=== PATIENT | male | born 1965 | race Caucasian/White ===

== ENCOUNTER 2017-06-20 02:42 | Inpatient (IN) | payer MEDICAID, SELFPAY ==
[2017-06-20] MEDS: diphenhydrAMINE INJ 50MG/ML VIAL (J1200) IV (03:25)
[2017-06-20] MEDS: IPRATROPIUM 0.5MG/ALBUTEROL 2.5MG INH SOL UD 3ML (DUONEB)(J7620) NEB ×4 (03:42→20:46)
[2017-06-20 03:54] LABS: BASO # 0.1 10^3/uL (0.0-0.2); BASO % 0.4 % (0.0-1.0); EOS # 0.3 10^3/uL (0.0-0.50); EOS % 2.4 % (0.0-3.0); HEMATOCRIT 51.4 % (42.0-52.0); HEMOGLOBIN 16.7 g/dl (14.0-18.0); IMMATURE GRANULOCYTE % 1.5 % (0-3.0); LYMPH # 1.1 10^3/uL (1.5-4.5); LYMPH % 8.5 % (24.0-44.0); MEAN CORPUSCULAR HEMOGLOBIN 29.9 pg (27.0-33.0); MEAN CORPUSCULAR HGB CONC 32.5 g/dl (32.0-36.5); MEAN CORPUSCULAR VOLUME 91.9 fl (80.0-96.0); MONO # 0.7 10^3/uL (0.0-0.8); MONO % 5.2 % (0.0-5.0); NEUTROPHILS # 10.7 10^3/uL (1.8-7.7); PLATELET COUNT, AUTOMATED 428 10^3/uL (150-450); RED BLOOD COUNT 5.59 10^6/uL (4.30-6.10); RED CELL DISTRIBUTION WIDTH 13.2 % (11.5-14.5)
[2017-06-20 03:55] LABS: SUSPECT SAMPLE POS FLAG
[2017-06-20 04:40] LABS: LACTIC ACID SEPSIS PROTOCOL 1.1 MMOL/L (0.4-2.0)
[2017-06-20 04:40] LABS: ALBUMIN 2.6 GM/DL (3.2-5.2); ALBUMIN/GLOBULIN RATIO 0.72 (1.00-1.93); ALKALINE PHOSPHATASE 105 U/L (45-117); ALT/SGPT 25 U/L (12-78); ANION GAP 7 MEQ/L (8-16); AST/SGOT 17 U/L (7-37); BILIRUBIN,DIRECT 0.1 MG/DL (0.0-0.2); BILIRUBIN,TOTAL 0.3 MG/DL (0.2-1.0); BLOOD UREA NITROGEN 5 MG/DL (7-18); CALCIUM LEVEL 8.7 MG/DL (8.5-10.1); CARBON DIOXIDE LEVEL 31 MEQ/L (21-32); CHLORIDE LEVEL 104 MEQ/L (98-107); CREATININE FOR GFR 0.69 MG/DL (0.70-1.30); GLOMERULAR FILTRATION RATE > 60.0 (>56); GLUCOSE, FASTING 150 MG/DL (70-100); NT-PRO BNP 101 PG/ML (<125); POTASSIUM SERUM 4.7 MEQ/L (3.5-5.1); SODIUM LEVEL 142 MEQ/L (136-145); TOTAL PROTEIN 6.2 GM/DL (6.4-8.2)
[2017-06-20] MEDS ORDERED: ACETAMINOPHEN TAB 650MG DOSE (2X325MG) PO (06:30)
[2017-06-20 07:25] LABS: CHOLESTEROL LEVEL 139 MG/DL (<200); CHOLESTEROL RISK RATIO 3.475 (<5); HDL CHOLESTEROL 40 MG/DL (>40); LDL CHOLESTEROL 82.4 MG/DL (<100); NON-HDL-C 99 MG/DL; TRIGLYCERIDES LEVEL 83 MG/DL (<150)
[2017-06-20] MEDS: HEPARIN SOD (PORCINE) 5000 UNITS/ML VIAL SC ×3 (10:36→22:25)
[2017-06-20] MEDS: predniSONE 20 MG TAB PO (10:36)
[2017-06-20] MEDS: DOXYCYCLINE HYCLATE 100 MG TAB PO ×2 (14:23→22:25)
[2017-06-20] MEDS: LORATADINE 10 MG TAB PO (22:25)
[2017-06-20] MEDS: FAMOTIDINE 20 MG TAB PO (22:25)
[2017-06-21] MEDS: IPRATROPIUM 0.5MG/ALBUTEROL 2.5MG INH SOL UD 3ML (DUONEB)(J7620) NEB ×5 (00:36→20:00)
[2017-06-21] MEDS: HEPARIN SOD (PORCINE) 5000 UNITS/ML VIAL SC ×3 (06:01→21:13)
[2017-06-21 06:43] LABS: BASO % 0.2 % (0.0-1.0); EOS # 0.2 10^3/uL (0.0-0.50); EOS % 1.1 % (0.0-3.0); HEMATOCRIT 49.2 % (42.0-52.0); HEMOGLOBIN 15.9 g/dl (14.0-18.0); IMMATURE GRANULOCYTE % 1.1 % (0-3.0); LYMPH # 2.4 10^3/uL (1.5-4.5); LYMPH % 15.4 % (24.0-44.0); MEAN CORPUSCULAR HEMOGLOBIN 29.7 pg (27.0-33.0); MEAN CORPUSCULAR HGB CONC 32.3 g/dl (32.0-36.5); MEAN CORPUSCULAR VOLUME 91.8 fl (80.0-96.0); MONO # 1.4 10^3/uL (0.0-0.8); MONO % 9.1 % (0.0-5.0); NEUTROPHILS # 11.3 10^3/uL (1.8-7.7); NEUTROPHILS % 73.1 % (36.0-66.0); PLATELET COUNT, AUTOMATED 437 10^3/uL (150-450); RED BLOOD COUNT 5.36 10^6/uL (4.30-6.10); RED CELL DISTRIBUTION WIDTH 13.2 % (11.5-14.5); WHITE BLOOD COUNT 15.4 10^3/uL (4.0-10.0)
[2017-06-21 07:07] LABS: ALBUMIN 2.4 GM/DL (3.2-5.2); ALBUMIN/GLOBULIN RATIO 0.62 (1.00-1.93); ALKALINE PHOSPHATASE 88 U/L (45-117); ALT/SGPT 23 U/L (12-78); ANION GAP 3 MEQ/L (8-16); AST/SGOT 12 U/L (7-37); BILIRUBIN,TOTAL 0.2 MG/DL (0.2-1.0); BLOOD UREA NITROGEN 10 MG/DL (7-18); CALCIUM LEVEL 9.1 MG/DL (8.5-10.1); CARBON DIOXIDE LEVEL 34 MEQ/L (21-32); CHLORIDE LEVEL 103 MEQ/L (98-107); CREATININE FOR GFR 0.62 MG/DL (0.70-1.30); GLOMERULAR FILTRATION RATE > 60.0 (>56); GLUCOSE, FASTING 118 MG/DL (70-100); POTASSIUM SERUM 4.3 MEQ/L (3.5-5.1); SODIUM LEVEL 140 MEQ/L (136-145); TOTAL PROTEIN 6.3 GM/DL (6.4-8.2)
[2017-06-21] MEDS: FAMOTIDINE 20 MG TAB PO ×2 (10:20→20:54)
[2017-06-21] MEDS: predniSONE 20 MG TAB PO (10:20)
[2017-06-21] MEDS: DOXYCYCLINE HYCLATE 100 MG TAB PO ×2 (10:20→20:54)
[2017-06-21] MEDS: LORATADINE 10 MG TAB PO (20:54)
[2017-06-21] MEDS: ADVAIR HFA 230/21MCG INHALER INH (20:55)
[2017-06-22] MEDS: IPRATROPIUM 0.5MG/ALBUTEROL 2.5MG INH SOL UD 3ML (DUONEB)(J7620) NEB ×5 (00:44→20:00)
[2017-06-22] MEDS: HEPARIN SOD (PORCINE) 5000 UNITS/ML VIAL SC ×3 (05:39→21:26)
[2017-06-22 07:11] LABS: BASO # 0.1 10^3/uL (0.0-0.2); BASO % 0.4 % (0.0-1.0); EOS # 0.2 10^3/uL (0.0-0.50); EOS % 1.7 % (0.0-3.0); HEMOGLOBIN 15.3 g/dl (14.0-18.0); IMMATURE GRANULOCYTE % 1.7 % (0-3.0); LYMPH # 3.1 10^3/uL (1.5-4.5); LYMPH % 22.7 % (24.0-44.0); MEAN CORPUSCULAR HEMOGLOBIN 29.9 pg (27.0-33.0); MEAN CORPUSCULAR HGB CONC 31.9 g/dl (32.0-36.5); MEAN CORPUSCULAR VOLUME 93.8 fl (80.0-96.0); MONO # 1.2 10^3/uL (0.0-0.8); MONO % 8.4 % (0.0-5.0); NEUTROPHILS % 65.1 % (36.0-66.0); PLATELET COUNT, AUTOMATED 436 10^3/uL (150-450); RED BLOOD COUNT 5.12 10^6/uL (4.30-6.10); RED CELL DISTRIBUTION WIDTH 13.3 % (11.5-14.5); WHITE BLOOD COUNT 13.9 10^3/uL (4.0-10.0)
[2017-06-22] MEDS: ADVAIR HFA 230/21MCG INHALER INH ×2 (07:27→20:30)
[2017-06-22 07:39] LABS: ALBUMIN 2.3 GM/DL (3.2-5.2); ALBUMIN/GLOBULIN RATIO 0.64 (1.00-1.93); ALKALINE PHOSPHATASE 82 U/L (45-117); ALT/SGPT 23 U/L (12-78); ANION GAP 4 MEQ/L (8-16); AST/SGOT 10 U/L (7-37); BILIRUBIN,TOTAL 0.2 MG/DL (0.2-1.0); BLOOD UREA NITROGEN 12 MG/DL (7-18); CALCIUM LEVEL 9.2 MG/DL (8.5-10.1); CARBON DIOXIDE LEVEL 37 MEQ/L (21-32); CHLORIDE LEVEL 102 MEQ/L (98-107); CREATININE FOR GFR 0.68 MG/DL (0.70-1.30); GLOMERULAR FILTRATION RATE > 60.0 (>56); GLUCOSE, FASTING 131 MG/DL (70-100); MAGNESIUM LEVEL 2.1 MG/DL (1.8-2.4); POTASSIUM SERUM 4.3 MEQ/L (3.5-5.1); SODIUM LEVEL 143 MEQ/L (136-145); TOTAL PROTEIN 5.9 GM/DL (6.4-8.2)
[2017-06-22] MEDS: DOXYCYCLINE HYCLATE 100 MG TAB PO ×2 (09:57→21:26)
[2017-06-22] MEDS: FAMOTIDINE 20 MG TAB PO ×2 (09:57→21:26)
[2017-06-22] MEDS: predniSONE 20 MG TAB PO (09:57)
[2017-06-22] MEDS: LORATADINE 10 MG TAB PO (21:26)
[2017-06-23] MEDS: IPRATROPIUM 0.5MG/ALBUTEROL 2.5MG INH SOL UD 3ML (DUONEB)(J7620) NEB ×2 (02:35→08:00)
[2017-06-23] MEDS: HEPARIN SOD (PORCINE) 5000 UNITS/ML VIAL SC ×3 (05:29→20:26)
[2017-06-23 07:06] LABS: BASO # 0.1 10^3/uL (0.0-0.2); BASO % 0.5 % (0.0-1.0); EOS # 0.3 10^3/uL (0.0-0.50); EOS % 1.7 % (0.0-3.0); HEMATOCRIT 49.2 % (42.0-52.0); HEMOGLOBIN 15.6 g/dl (14.0-18.0); IMMATURE GRANULOCYTE % 1.7 % (0-3.0); LYMPH # 3.2 10^3/uL (1.5-4.5); LYMPH % 21.2 % (24.0-44.0); MEAN CORPUSCULAR HEMOGLOBIN 29.4 pg (27.0-33.0); MEAN CORPUSCULAR HGB CONC 31.7 g/dl (32.0-36.5); MEAN CORPUSCULAR VOLUME 92.8 fl (80.0-96.0); MONO # 1.3 10^3/uL (0.0-0.8); MONO % 8.5 % (0.0-5.0); NEUTROPHILS # 9.9 10^3/uL (1.8-7.7); NEUTROPHILS % 66.4 % (36.0-66.0); PLATELET COUNT, AUTOMATED 460 10^3/uL (150-450); RED CELL DISTRIBUTION WIDTH 13.2 % (11.5-14.5); WHITE BLOOD COUNT 14.9 10^3/uL (4.0-10.0)
[2017-06-23 07:27] LABS: ALBUMIN 2.5 GM/DL (3.2-5.2); ALBUMIN/GLOBULIN RATIO 0.69 (1.00-1.93); ALKALINE PHOSPHATASE 85 U/L (45-117); ALT/SGPT 30 U/L (12-78); ANION GAP 3 MEQ/L (8-16); AST/SGOT 13 U/L (7-37); BILIRUBIN,TOTAL 0.3 MG/DL (0.2-1.0); BLOOD UREA NITROGEN 9 MG/DL (7-18); CALCIUM LEVEL 9.2 MG/DL (8.5-10.1); CARBON DIOXIDE LEVEL 37 MEQ/L (21-32); CHLORIDE LEVEL 99 MEQ/L (98-107); CREATININE FOR GFR 0.67 MG/DL (0.70-1.30); GLOMERULAR FILTRATION RATE > 60.0 (>56); GLUCOSE, FASTING 126 MG/DL (70-100); POTASSIUM SERUM 3.8 MEQ/L (3.5-5.1); SODIUM LEVEL 139 MEQ/L (136-145); TOTAL PROTEIN 6.1 GM/DL (6.4-8.2)
[2017-06-23] MEDS: ADVAIR HFA 230/21MCG INHALER INH ×2 (08:17→21:14)
[2017-06-23] MEDS: FAMOTIDINE 20 MG TAB PO ×2 (09:01→20:26)
[2017-06-23] MEDS: DOXYCYCLINE HYCLATE 100 MG TAB PO ×2 (09:01→20:26)
[2017-06-23] MEDS: predniSONE 10 MG TAB PO (09:01)
[2017-06-23] MEDS ORDERED: COMBIVENT RESPIMAT 100-20MCG INHALER 4GM INH (13:45)
[2017-06-23] MEDS ORDERED: ALBUTEROL 90 MCG/ACT 8GM HFA INHALER INH (13:45)
[2017-06-23] MEDS: LORATADINE 10 MG TAB PO (20:26)
[2017-06-24] MEDS: HEPARIN SOD (PORCINE) 5000 UNITS/ML VIAL SC ×3 (05:13→21:02)
[2017-06-24 06:37] LABS: BASO # 0.1 10^3/uL (0.0-0.2); BASO % 0.8 % (0.0-1.0); EOS # 0.2 10^3/uL (0.0-0.50); EOS % 1.4 % (0.0-3.0); HEMATOCRIT 51.3 % (42.0-52.0); HEMOGLOBIN 16.7 g/dl (14.0-18.0); IMMATURE GRANULOCYTE % 3.1 % (0-3.0); LYMPH # 2.6 10^3/uL (1.5-4.5); LYMPH % 16.8 % (24.0-44.0); MEAN CORPUSCULAR HEMOGLOBIN 29.7 pg (27.0-33.0); MEAN CORPUSCULAR HGB CONC 32.6 g/dl (32.0-36.5); MEAN CORPUSCULAR VOLUME 91.1 fl (80.0-96.0); MONO # 1.3 10^3/uL (0.0-0.8); MONO % 8.4 % (0.0-5.0); NEUTROPHILS # 10.7 10^3/uL (1.8-7.7); NEUTROPHILS % 69.5 % (36.0-66.0); PLATELET COUNT, AUTOMATED 479 10^3/uL (150-450); RED BLOOD COUNT 5.63 10^6/uL (4.30-6.10); RED CELL DISTRIBUTION WIDTH 13.2 % (11.5-14.5); WHITE BLOOD COUNT 15.4 10^3/uL (4.0-10.0)
[2017-06-24] MEDS: ADVAIR HFA 230/21MCG INHALER INH ×2 (07:00→21:21)
[2017-06-24 07:09] LABS: ALBUMIN 2.6 GM/DL (3.2-5.2); ALBUMIN/GLOBULIN RATIO 0.67 (1.00-1.93); ALKALINE PHOSPHATASE 86 U/L (45-117); ALT/SGPT 39 U/L (12-78); ANION GAP 4 MEQ/L (8-16); AST/SGOT 17 U/L (7-37); BILIRUBIN,TOTAL 0.3 MG/DL (0.2-1.0); BLOOD UREA NITROGEN 11 MG/DL (7-18); CARBON DIOXIDE LEVEL 36 MEQ/L (21-32); CHLORIDE LEVEL 98 MEQ/L (98-107); CREATININE FOR GFR 0.65 MG/DL (0.70-1.30); GLOMERULAR FILTRATION RATE > 60.0 (>56); GLUCOSE, FASTING 172 MG/DL (70-100); SODIUM LEVEL 138 MEQ/L (136-145); TOTAL PROTEIN 6.5 GM/DL (6.4-8.2)
[2017-06-24] MEDS: predniSONE 10 MG TAB PO (09:52)
[2017-06-24] MEDS: DOXYCYCLINE HYCLATE 100 MG TAB PO ×2 (09:53→21:02)
[2017-06-24] MEDS: FAMOTIDINE 20 MG TAB PO ×2 (09:53→21:02)
[2017-06-24] MEDS: LORATADINE 10 MG TAB PO (21:02)
[2017-06-25] MEDS: HEPARIN SOD (PORCINE) 5000 UNITS/ML VIAL SC ×3 (05:22→20:06)
[2017-06-25] MEDS: ADVAIR HFA 230/21MCG INHALER INH ×2 (07:19→21:27)
[2017-06-25] MEDS: predniSONE 10 MG TAB PO (09:38)
[2017-06-25] MEDS: FAMOTIDINE 20 MG TAB PO ×2 (09:38→20:06)
[2017-06-25] MEDS: DOXYCYCLINE HYCLATE 100 MG TAB PO ×2 (09:38→20:06)
[2017-06-25] MEDS: LORATADINE 10 MG TAB PO (20:06)
[2017-06-26] MEDS: HEPARIN SOD (PORCINE) 5000 UNITS/ML VIAL SC ×3 (05:20→21:32)
[2017-06-26 06:18] LABS: BASO # 0.1 10^3/uL (0.0-0.2); BASO % 0.9 % (0.0-1.0); EOS # 0.1 10^3/uL (0.0-0.50); EOS % 0.9 % (0.0-3.0); HEMATOCRIT 53.4 % (42.0-52.0); IMMATURE GRANULOCYTE % 4.2 % (0-3.0); LYMPH # 1.4 10^3/uL (1.5-4.5); LYMPH % 11.1 % (24.0-44.0); MEAN CORPUSCULAR HEMOGLOBIN 29.2 pg (27.0-33.0); MEAN CORPUSCULAR HGB CONC 31.6 g/dl (32.0-36.5); MEAN CORPUSCULAR VOLUME 92.2 fl (80.0-96.0); MONO # 1.2 10^3/uL (0.0-0.8); MONO % 9.2 % (0.0-5.0); NEUTROPHILS # 9.4 10^3/uL (1.8-7.7); NEUTROPHILS % 73.7 % (36.0-66.0); PLATELET COUNT, AUTOMATED 474 10^3/uL (150-450); RED BLOOD COUNT 5.79 10^6/uL (4.30-6.10); WHITE BLOOD COUNT 12.8 10^3/uL (4.0-10.0)
[2017-06-26 06:28] LABS: HEMOGLOBIN 16.9 g/dl (14.0-18.0); SUSPECT SAMPLE POS FLAG
[2017-06-26 06:46] LABS: ALBUMIN 2.7 GM/DL (3.2-5.2); ALBUMIN/GLOBULIN RATIO 0.66 (1.00-1.93); ALKALINE PHOSPHATASE 82 U/L (45-117); ALT/SGPT 77 U/L (12-78); ANION GAP 4 MEQ/L (8-16); AST/SGOT 33 U/L (7-37); BILIRUBIN,TOTAL 0.4 MG/DL (0.2-1.0); BLOOD UREA NITROGEN 15 MG/DL (7-18); CALCIUM LEVEL 9.2 MG/DL (8.5-10.1); CARBON DIOXIDE LEVEL 38 MEQ/L (21-32); CHLORIDE LEVEL 96 MEQ/L (98-107); CREATININE FOR GFR 0.81 MG/DL (0.70-1.30); GLOMERULAR FILTRATION RATE > 60.0 (>56); GLUCOSE, FASTING 155 MG/DL (70-100); MAGNESIUM LEVEL 2.1 MG/DL (1.8-2.4); POTASSIUM SERUM 4.7 MEQ/L (3.5-5.1); SODIUM LEVEL 138 MEQ/L (136-145); TOTAL PROTEIN 6.8 GM/DL (6.4-8.2)
[2017-06-26] MEDS: ADVAIR HFA 230/21MCG INHALER INH ×2 (07:32→21:53)
[2017-06-26] MEDS: DOXYCYCLINE HYCLATE 100 MG TAB PO (08:51)
[2017-06-26] MEDS: predniSONE 10 MG TAB PO (08:52)
[2017-06-26] MEDS: FAMOTIDINE 20 MG TAB PO ×2 (08:52→20:40)
[2017-06-26] MEDS: IPRATROPIUM 0.5MG/ALBUTEROL 2.5MG INH SOL UD 3ML (DUONEB)(J7620) NEB ×2 (16:20→21:54)
[2017-06-26] MEDS: LORATADINE 10 MG TAB PO (20:40)
[2017-06-27] MEDS: HEPARIN SOD (PORCINE) 5000 UNITS/ML VIAL SC ×3 (05:47→20:55)
[2017-06-27] MEDS: IPRATROPIUM 0.5MG/ALBUTEROL 2.5MG INH SOL UD 3ML (DUONEB)(J7620) NEB ×4 (06:00→22:10)
[2017-06-27] MEDS: ADVAIR HFA 230/21MCG INHALER INH ×2 (07:24→22:10)
[2017-06-27] MEDS: FAMOTIDINE 20 MG TAB PO ×2 (08:37→20:55)
[2017-06-27] MEDS: predniSONE 10 MG TAB PO (08:37)
[2017-06-27] MEDS: LORATADINE 10 MG TAB PO (20:55)
[2017-06-28] MEDS: HEPARIN SOD (PORCINE) 5000 UNITS/ML VIAL SC ×3 (05:25→22:29)
[2017-06-28] MEDS: IPRATROPIUM 0.5MG/ALBUTEROL 2.5MG INH SOL UD 3ML (DUONEB)(J7620) NEB ×2 (05:30→20:16)
[2017-06-28] MEDS: ADVAIR HFA 230/21MCG INHALER INH ×2 (07:15→20:15)
[2017-06-28] MEDS: FAMOTIDINE 20 MG TAB PO ×2 (09:30→19:49)
[2017-06-28] MEDS: predniSONE 10 MG TAB PO (09:30)
[2017-06-28] MEDS: LORATADINE 10 MG TAB PO (19:49)
[2017-06-29] MEDS: HEPARIN SOD (PORCINE) 5000 UNITS/ML VIAL SC ×2 (06:00→13:51)
[2017-06-29] MEDS: ADVAIR HFA 230/21MCG INHALER INH (07:08)
[2017-06-29] MEDS: predniSONE 10 MG TAB PO (08:46)
[2017-06-29] MEDS: FAMOTIDINE 20 MG TAB PO (08:46)
== END 2017-06-29 14:45 | disposition home or self-care (01) | DRG 140 ==
LOC: M ED 02:42 → M ED INP 06:22 → M MS5PR 21:20
PROVIDERS: Internal Medicine
DX: J44.1 Chronic obstructive pulmonary disease with (acute) exacerbation (principal); Z99.81 Dependence on supplemental oxygen; E78.5 Hyperlipidemia, unspecified; K21.9 Gastro-esophageal reflux disease without esophagitis; F17.210 Nicotine dependence, cigarettes, uncomplicated; J30.2 Other seasonal allergic rhinitis; Z91.018 Allergy to other foods; Z88.0 Allergy status to penicillin; Z88.1 Allergy status to other antibiotic agents; Z79.899 Other long term (current) drug therapy

== ENCOUNTER 2017-07-19 12:12 | Emergency (ER) | payer MEDICAID ==
[2017-07-19] MEDS: IPRATROPIUM 0.5MG/ALBUTEROL 2.5MG INH SOL UD 3ML (DUONEB)(J7620) NEB ×4 (12:30→15:37)
[2017-07-19] MEDS: methylPREDNISolone INJ 125 MG/2 ML VIAL (J2930) IV (12:48)
[2017-07-19 12:52] LABS: BASO # 0.1 10^3/uL (0.0-0.2); BASO % 0.5 % (0.0-1.0); EOS # 0.8 10^3/uL (0.0-0.50); EOS % 6.8 % (0.0-3.0); HEMATOCRIT 52.8 % (42.0-52.0); HEMOGLOBIN 16.8 g/dl (14.0-18.0); IMMATURE GRANULOCYTE % 1.3 % (0-3.0); LYMPH # 1.7 10^3/uL (1.5-4.5); LYMPH % 15.3 % (24.0-44.0); MEAN CORPUSCULAR HEMOGLOBIN 30.1 pg (27.0-33.0); MEAN CORPUSCULAR HGB CONC 31.8 g/dl (32.0-36.5); MEAN CORPUSCULAR VOLUME 94.5 fl (80.0-96.0); MONO # 0.8 10^3/uL (0.0-0.8); MONO % 7.5 % (0.0-5.0); NEUTROPHILS # 7.6 10^3/uL (1.8-7.7); NEUTROPHILS % 68.6 % (36.0-66.0); PLATELET COUNT, AUTOMATED 305 10^3/uL (150-450); RED BLOOD COUNT 5.59 10^6/uL (4.30-6.10); RED CELL DISTRIBUTION WIDTH 13.6 % (11.5-14.5)
[2017-07-19 12:55] LABS: SUSPECT SAMPLE POS FLAG
[2017-07-19 13:11] LABS: ABG BASE EXCESS 10.5 (-2.0-2.0); ABG O2 SATURATION 94.9 % (95.0-99.0); ABG PARTIAL PRESSURE O2 70.5 mmHg (75.0-100.0); ABG STANDARD HCO3 34.3 MEQ/L (22.0-26.0); ABG TOTAL CO2 42.2 MEQ/L (22.0-29.0)
[2017-07-19 13:11] LABS: D-DIMER QUANT 597.2 ng/ml (<500)
[2017-07-19 13:20] LABS: ABG PARTIAL PRESSURE CO2 72.4 mmHg (35.0-45.0)
[2017-07-19 13:24] LABS: ANION GAP 4 MEQ/L (8-16); BLOOD UREA NITROGEN 9 MG/DL (7-18); CALCIUM LEVEL 9.1 MG/DL (8.5-10.1); CARBON DIOXIDE LEVEL 39 MEQ/L (21-32); CHLORIDE LEVEL 96 MEQ/L (98-107); CPK CREATINE PHOSPHOKINASE 79 U/L (39-308); CREATININE FOR GFR 0.62 MG/DL (0.70-1.30); GLOMERULAR FILTRATION RATE > 60.0 (>56); GLUCOSE, FASTING 128 MG/DL (70-100); POTASSIUM SERUM 4.5 MEQ/L (3.5-5.1); SODIUM LEVEL 139 MEQ/L (136-145); TROPONIN I < 0.02 NG/ML (< 0.10)
[2017-07-19 13:29] LABS: CK-MB VALUE MASS 5.5 NG/ML (0.0-3.6); MB/CK RELATIVE INDEX 6.96 (< OR =4); NT-PRO BNP 11 PG/ML (<125)
[2017-07-19] MEDS ORDERED: ISOVUE-370 76% 100ML VIAL (Q9967) As Ordered (13:41)
== END 2017-07-19 17:23 | disposition home or self-care (01) ==
LOC: M ED 12:12
DX: J44.1 Chronic obstructive pulmonary disease with (acute) exacerbation (principal); E11.9 Type 2 diabetes mellitus without complications; E78.5 Hyperlipidemia, unspecified; J30.2 Other seasonal allergic rhinitis; K21.9 Gastro-esophageal reflux disease without esophagitis; F17.200 Nicotine dependence, unspecified, uncomplicated; Z88.0 Allergy status to penicillin; Z88.8 Allergy status to other drugs, medicaments and biological substances; Z88.1 Allergy status to other antibiotic agents; Z91.018 Allergy to other foods
CPT/HCPCS: Q9967

== ENCOUNTER 2017-08-10 21:10 | Emergency (ER) | payer MEDICAID ==
[2017-08-10] MEDS: methylPREDNISolone INJ 125 MG/2 ML VIAL (J2930) IV (22:46)
[2017-08-10 22:49] LABS: BASO # 0.1 10^3/uL (0.0-0.2); BASO % 0.6 % (0.0-1.0); EOS # 0.6 10^3/uL (0.0-0.50); EOS % 5.1 % (0.0-3.0); HEMATOCRIT 50.5 % (42.0-52.0); HEMOGLOBIN 16.2 g/dl (13.5-17.5); IMMATURE GRANULOCYTE % 0.5 % (0-3.0); LYMPH # 1.7 10^3/uL (1.5-4.5); LYMPH % 14.4 % (24.0-44.0); MEAN CORPUSCULAR HEMOGLOBIN 29.9 pg (27.0-33.0); MEAN CORPUSCULAR HGB CONC 32.1 g/dl (32.0-36.5); MEAN CORPUSCULAR VOLUME 93.2 fl (80.0-96.0); MONO # 0.9 10^3/uL (0.0-0.8); MONO % 7.8 % (0.0-5.0); NEUTROPHILS # 8.6 10^3/uL (1.8-7.7); NEUTROPHILS % 71.6 % (36.0-66.0); PLATELET COUNT, AUTOMATED 303 10^3/uL (150-450); RED BLOOD COUNT 5.42 10^6/uL (4.30-6.10); RED CELL DISTRIBUTION WIDTH 13.3 % (11.5-14.5)
[2017-08-10] MEDS: IPRATROPIUM 0.5MG/ALBUTEROL 2.5MG INH SOL UD 3ML (DUONEB)(J7620) NEB (23:07)
[2017-08-10 23:09] LABS: ABG BASE EXCESS 8.5 (-2.0-2.0); ABG HCO3 37.2 MEQ/L (22.0-26.0); ABG PARTIAL PRESSURE O2 59.5 mmHg (75.0-100.0); ABG STANDARD HCO3 32.1 MEQ/L (22.0-26.0); ABG TOTAL CO2 39.3 MEQ/L (22.0-29.0); ABG pH (ARTERIAL) 7.361 UNITS (7.350-7.450)
[2017-08-10 23:13] LABS: ABG PARTIAL PRESSURE CO2 67.2 mmHg (35.0-45.0)
[2017-08-10 23:20] LABS: ANION GAP 3 MEQ/L (8-16); BLOOD UREA NITROGEN 13 MG/DL (7-18); CALCIUM LEVEL 9.2 MG/DL (8.5-10.1); CARBON DIOXIDE LEVEL 36 MEQ/L (21-32); CHLORIDE LEVEL 101 MEQ/L (98-107); CREATININE FOR GFR 0.64 MG/DL (0.70-1.30); GLOMERULAR FILTRATION RATE > 60.0 (>56); GLUCOSE, FASTING 153 MG/DL (70-100); POTASSIUM SERUM 4.4 MEQ/L (3.5-5.1); SODIUM LEVEL 140 MEQ/L (136-145)
[2017-08-11] MEDS: IPRATROPIUM 0.5MG/ALBUTEROL 2.5MG INH SOL UD 3ML (DUONEB)(J7620) NEB (00:13)
[2017-08-11] MEDS ORDERED: ALBUTEROL 90 MCG/ACT 8GM HFA INHALER INH ×2 (00:15→01:15)
== END 2017-08-11 01:17 | disposition home or self-care (01) ==
LOC: M ED 08-11 01:17
DX: Z76.0 Encounter for issue of repeat prescription (principal); J44.9 Chronic obstructive pulmonary disease, unspecified; Z99.81 Dependence on supplemental oxygen; Z79.899 Other long term (current) drug therapy; Z79.51 Long term (current) use of inhaled steroids; Z88.0 Allergy status to penicillin; Z88.8 Allergy status to other drugs, medicaments and biological substances; Z91.018 Allergy to other foods; F17.210 Nicotine dependence, cigarettes, uncomplicated
CPT/HCPCS: J2930

== ENCOUNTER 2017-08-30 20:34 | Emergency (ER) | payer MEDICAID ==
[2017-08-30] MEDS: methylPREDNISolone INJ 125 MG/2 ML VIAL (J2930) IM (21:24)
[2017-08-30] MEDS: IPRATROPIUM 0.5MG/ALBUTEROL 2.5MG INH SOL UD 3ML (DUONEB)(J7620) NEB (21:32)
[2017-08-30 21:38] LABS: BASO # 0.1 10^3/uL (0.0-0.2); BASO % 0.8 % (0.0-1.0); EOS # 0.7 10^3/uL (0.0-0.50); HEMATOCRIT 49.4 % (42.0-52.0); HEMOGLOBIN 15.6 g/dl (13.5-17.5); IMMATURE GRANULOCYTE % 0.3 % (0-3.0); LYMPH # 2.1 10^3/uL (1.5-4.5); LYMPH % 20.1 % (24.0-44.0); MEAN CORPUSCULAR HEMOGLOBIN 29.6 pg (27.0-33.0); MEAN CORPUSCULAR HGB CONC 31.6 g/dl (32.0-36.5); MEAN CORPUSCULAR VOLUME 93.7 fl (80.0-96.0); MONO # 0.9 10^3/uL (0.0-0.8); MONO % 8.7 % (0.0-5.0); NEUTROPHILS # 6.5 10^3/uL (1.8-7.7); NEUTROPHILS % 63.1 % (36.0-66.0); PLATELET COUNT, AUTOMATED 345 10^3/uL (150-450); RED BLOOD COUNT 5.27 10^6/uL (4.30-6.10); RED CELL DISTRIBUTION WIDTH 12.9 % (11.5-14.5); WHITE BLOOD COUNT 10.3 10^3/uL (4.0-10.0)
[2017-08-30 21:57] LABS: ANION GAP 2 MEQ/L (8-16); BLOOD UREA NITROGEN 7 MG/DL (7-18); CARBON DIOXIDE LEVEL 38 MEQ/L (21-32); CHLORIDE LEVEL 99 MEQ/L (98-107); CREATININE FOR GFR 0.53 MG/DL (0.70-1.30); GLOMERULAR FILTRATION RATE > 60.0 (>56); GLUCOSE, FASTING 118 MG/DL (70-100); POTASSIUM SERUM 4.2 MEQ/L (3.5-5.1); SODIUM LEVEL 139 MEQ/L (136-145)
== END 2017-08-30 22:28 | disposition home or self-care (01) ==
LOC: M ED 20:34
DX: J44.9 Chronic obstructive pulmonary disease, unspecified (principal); F17.200 Nicotine dependence, unspecified, uncomplicated; Z79.899 Other long term (current) drug therapy; Z88.0 Allergy status to penicillin; Z88.8 Allergy status to other drugs, medicaments and biological substances; Z88.1 Allergy status to other antibiotic agents; Z91.018 Allergy to other foods
CPT/HCPCS: J2930

== ENCOUNTER 2018-01-17 20:02 | Emergency (ER) | payer MEDICAID ==
[2018-01-17] MEDS: methylPREDNISolone INJ 125 MG/2 ML VIAL (J2930) IV (21:03)
[2018-01-17] MEDS: IPRATROPIUM 0.5MG/ALBUTEROL 2.5MG INH SOL UD 3ML (DUONEB)(J7620) NEB (21:30)
[2018-01-17] MEDS: ALBUTEROL 90 MCG/ACT 8GM HFA INHALER INH (21:30)
[2018-01-17 21:32] LABS: BASO # 0.1 10^3/uL (0.0-0.2); BASO % 0.8 % (0.0-1.0); EOS # 0.3 10^3/uL (0.0-0.50); HEMOGLOBIN 15.9 g/dl (13.5-17.5); IMMATURE GRANULOCYTE % 0.6 % (0-3.0); LYMPH # 2.2 10^3/uL (1.5-4.5); LYMPH % 21.9 % (24.0-44.0); MEAN CORPUSCULAR HEMOGLOBIN 29.5 pg (27.0-33.0); MEAN CORPUSCULAR HGB CONC 31.2 g/dl (32.0-36.5); MEAN CORPUSCULAR VOLUME 94.6 fl (80.0-96.0); MONO % 10.1 % (0.0-5.0); NEUTROPHILS # 6.3 10^3/uL (1.8-7.7); NEUTROPHILS % 63.6 % (36.0-66.0); PLATELET COUNT, AUTOMATED 350 10^3/uL (150-450); RED BLOOD COUNT 5.39 10^6/uL (4.30-6.10); RED CELL DISTRIBUTION WIDTH 13.5 % (11.5-14.5); WHITE BLOOD COUNT 9.9 10^3/uL (4.0-10.0)
[2018-01-17 21:38] LABS: ANION GAP 3 MEQ/L (8-16); BLOOD UREA NITROGEN 15 MG/DL (7-18); CALCIUM LEVEL 9.8 MG/DL (8.5-10.1); CARBON DIOXIDE LEVEL 39 MEQ/L (21-32); CHLORIDE LEVEL 97 MEQ/L (98-107); CPK CREATINE PHOSPHOKINASE 68 U/L (39-308); CREATININE FOR GFR 0.65 MG/DL (0.70-1.30); GLOMERULAR FILTRATION RATE > 60.0 (>56); GLUCOSE, FASTING 109 MG/DL (70-100); MB/CK RELATIVE INDEX 4.41 (< OR =4); POTASSIUM SERUM 5.2 MEQ/L (3.5-5.1); SODIUM LEVEL 139 MEQ/L (136-145); TROPONIN I < 0.02 NG/ML (< 0.10)
== END 2018-01-17 22:17 | disposition home or self-care (01) ==
LOC: M ED 20:02
DX: J44.1 Chronic obstructive pulmonary disease with (acute) exacerbation (principal); K21.9 Gastro-esophageal reflux disease without esophagitis; Z72.0 Tobacco use; Z79.899 Other long term (current) drug therapy; Z88.0 Allergy status to penicillin; Z91.018 Allergy to other foods; Z88.1 Allergy status to other antibiotic agents
CPT/HCPCS: J2930

== ENCOUNTER 2018-02-16 17:54 | Emergency (ER) | payer MEDICAID ==
[2018-02-16 18:22] LABS: BASO # 0.1 10^3/uL (0.0-0.2); BASO % 0.5 % (0.0-1.0); EOS # 0.4 10^3/uL (0.0-0.50); EOS % 3.1 % (0.0-3.0); HEMATOCRIT 47.9 % (42.0-52.0); HEMOGLOBIN 15.3 g/dl (13.5-17.5); IMMATURE GRANULOCYTE % 0.4 % (0-3.0); MEAN CORPUSCULAR HEMOGLOBIN 29.8 pg (27.0-33.0); MEAN CORPUSCULAR HGB CONC 31.9 g/dl (32.0-36.5); MEAN CORPUSCULAR VOLUME 93.4 fl (80.0-96.0); MONO # 0.9 10^3/uL (0.0-0.8); MONO % 8.3 % (0.0-5.0); NEUTROPHILS # 7.8 10^3/uL (1.8-7.7); NEUTROPHILS % 69.7 % (36.0-66.0); PLATELET COUNT, AUTOMATED 288 10^3/uL (150-450); RED BLOOD COUNT 5.13 10^6/uL (4.30-6.10); RED CELL DISTRIBUTION WIDTH 13.7 % (11.5-14.5); WHITE BLOOD COUNT 11.1 10^3/uL (4.0-10.0)
[2018-02-16 18:58] LABS: ANION GAP 5 MEQ/L (8-16); BLOOD UREA NITROGEN 12 MG/DL (7-18); CALCIUM LEVEL 8.4 MG/DL (8.5-10.1); CARBON DIOXIDE LEVEL 31 MEQ/L (21-32); CHLORIDE LEVEL 101 MEQ/L (98-107); CREATININE FOR GFR 0.53 MG/DL (0.70-1.30); GLOMERULAR FILTRATION RATE > 60.0 (>56); GLUCOSE, FASTING 91 MG/DL (70-100); POTASSIUM SERUM 4.4 MEQ/L (3.5-5.1); SODIUM LEVEL 137 MEQ/L (136-145)
[2018-02-16] MEDS: IPRATROPIUM 0.5MG/ALBUTEROL 2.5MG INH SOL UD 3ML (DUONEB)(J7620) NEB ×3 (19:29→20:38)
[2018-02-16] MEDS: methylPREDNISolone INJ 125 MG/2 ML VIAL (J2930) IV (20:09)
[2018-02-16] MEDS: MOXIFLOXACIN HCL 400 MG in APPROPRIATE DILUENT 1 EA IV (20:10)
[2018-02-16] MEDS: ALBUTEROL 90 MCG/ACT 8GM HFA INHALER INH (20:42)
== END 2018-02-16 21:45 | disposition home or self-care (01) ==
LOC: M ED 17:54
DX: J44.1 Chronic obstructive pulmonary disease with (acute) exacerbation (principal); I10 Essential (primary) hypertension; E11.9 Type 2 diabetes mellitus without complications; F17.210 Nicotine dependence, cigarettes, uncomplicated; Z99.81 Dependence on supplemental oxygen; Z88.0 Allergy status to penicillin; Z88.8 Allergy status to other drugs, medicaments and biological substances; Z91.018 Allergy to other foods; Z79.899 Other long term (current) drug therapy; Z79.51 Long term (current) use of inhaled steroids
CPT/HCPCS: J2280

== ENCOUNTER 2018-04-15 16:49 | Emergency (ER) | payer MEDICAID ==
[2018-04-15] MEDS: methylPREDNISolone INJ 125 MG/2 ML VIAL (J2930) IV (17:42)
== END 2018-04-15 18:30 | disposition home or self-care (01) ==
LOC: M ED 16:49
DX: J44.1 Chronic obstructive pulmonary disease with (acute) exacerbation (principal); I10 Essential (primary) hypertension; E78.5 Hyperlipidemia, unspecified; K21.9 Gastro-esophageal reflux disease without esophagitis; Z99.81 Dependence on supplemental oxygen; Z79.899 Other long term (current) drug therapy; Z88.0 Allergy status to penicillin; Z88.8 Allergy status to other drugs, medicaments and biological substances; Z91.018 Allergy to other foods
CPT/HCPCS: J2930

== ENCOUNTER 2018-05-01 12:37 | Emergency (ER) | payer MEDICAID ==
[~2018-05-01] VITALS: Ht 165.1 cm; Wt 81.8 kg
[~2018-05-01 12:37] MED LIST: ADV250INH INH; ADV500INH INH; ALBU83IN; ALBU83IN INH; ALBU83IN NEB; AVEL1TAB3 PO; CLAR1TAB2 PO; DOXY100T PO; ELIM5CRE2 TOP; FLUT11IN INH; IPRA0.00 IN; IPRA0.00 NEB; IPRAINH INH; LEVA1.256 INH; LIPI10TA PO; PRED10TA2 PO; PRED20TA PO; PROAAER10 INH; SIMV40TA2 PO; SING10TA32 PO; TIOT18INH INH; ZITHTAB PO
[2018-05-01] MEDS ORDERED: methylPREDNISolone INJ 125 MG/2 ML VIAL (J2930) IV ONE (13:00)
[2018-05-01] MEDS: IPRATROPIUM 0.5MG/ALBUTEROL 2.5MG INH SOL UD 3ML (DUONEB)(J7620) NEB PRN ×3 (13:14→13:58)
[2018-05-01 13:24] LABS: BASO # 0.1 10^3/uL (0.0-0.2); BASO % 0.5 % (0.0-1.0); EOS # 0.3 10^3/uL (0.0-0.50); EOS % 2.3 % (0.0-3.0); HEMATOCRIT 47.7 % (42.0-52.0); HEMOGLOBIN 15.3 g/dl (13.5-17.5); LYMPH # 1.6 10^3/uL (1.5-4.5); MEAN CORPUSCULAR HEMOGLOBIN 29.6 pg (27.0-33.0); MEAN CORPUSCULAR HGB CONC 32.1 g/dl (32.0-36.5); MEAN CORPUSCULAR VOLUME 92.3 fl (80.0-96.0); MONO # 0.9 10^3/uL (0.0-0.8); NEUTROPHILS # 10.1 10^3/uL (1.8-7.7); NEUTROPHILS % 77.8 % (36.0-66.0); PLATELET COUNT, AUTOMATED 321 10^3/uL (150-450); RED BLOOD COUNT 5.17 10^6/uL (4.30-6.10); WHITE BLOOD COUNT 12.9 10^3/uL (4.0-10.0)
[2018-05-01 13:25] LABS: ABG BASE EXCESS 5.6 (-2.0-2.0); ABG HCO3 34.3 MEQ/L (22.0-26.0); ABG O2 SATURATION 96.6 % (95.0-99.0); ABG PARTIAL PRESSURE O2 84.4 mmHg (75.0-100.0); ABG STANDARD HCO3 29.5 MEQ/L (22.0-26.0); ABG TOTAL CO2 36.3 MEQ/L (22.0-29.0); ABG pH (ARTERIAL) 7.326 UNITS (7.350-7.450)
[2018-05-01 13:29] LABS: ABG PARTIAL PRESSURE CO2 67.1 mmHg (35.0-45.0)
--- NOTE | 2018-05-01 13:50 | REP ---
Clinical: Cough and dyspnea. Comparison: 04/15/2018. Findings: Examination is limited by technique and poor inspiratory effort. Mediastinum and cardiac silhouette are within normal limits. Lung harrell demonstrate coarsened markings and possible basilar atelectasis cannot be excluded. Impression: Cannot exclude trace basilar atelectasis. Electronically Signed by Nolberto Martinez MD 05/01/2018 01:42 P
[2018-05-01 14:03] LABS: BLOOD UREA NITROGEN 19 MG/DL (7-18); CALCIUM LEVEL 8.7 MG/DL (8.5-10.1); CARBON DIOXIDE LEVEL 34 MEQ/L (21-32); CHLORIDE LEVEL 99 MEQ/L (98-107); CPK CREATINE PHOSPHOKINASE 114 U/L (39-308); CREATININE FOR GFR 0.66 MG/DL (0.70-1.30); GLOMERULAR FILTRATION RATE > 60.0 (>56); GLUCOSE, FASTING 103 MG/DL (70-100); MB/CK RELATIVE INDEX 2.72 (< OR =4); NT-PRO BNP 27 PG/ML (<125); POTASSIUM SERUM 5.5 MEQ/L (3.5-5.1); SODIUM LEVEL 137 MEQ/L (136-145); TROPONIN I < 0.02 NG/ML (< 0.10)
[2018-05-01 14:49] VITALS: O2SAT 94
[2018-05-01] MEDS ORDERED: AZIT500T2 PO (15:07)
[2018-05-01] MEDS ORDERED: PRED10TA2 PO (15:07)
[2018-05-01 15:12] VITALS: BP 133/79
[2018-05-01] MEDS ORDERED: AZITHROMYCIN 250 MG TAB PO ONE (15:15)
== END 2018-05-01 15:21 | disposition home or self-care (01) ==
LOC: M ED 12:37
DX: J44.1 Chronic obstructive pulmonary disease with (acute) exacerbation (principal); J96.12 Chronic respiratory failure with hypercapnia; R00.0 Tachycardia, unspecified; E78.5 Hyperlipidemia, unspecified; K21.9 Gastro-esophageal reflux disease without esophagitis; Z99.81 Dependence on supplemental oxygen; F17.210 Nicotine dependence, cigarettes, uncomplicated; Z88.0 Allergy status to penicillin; Z88.8 Allergy status to other drugs, medicaments and biological substances; Z91.018 Allergy to other foods; Z79.899 Other long term (current) drug therapy; Z79.51 Long term (current) use of inhaled steroids
CPT/HCPCS: 36600; 71045; 80048; 82550; 82553; 82803; 83605; 83880; 85025; 87040; 93041; 94640; 96374; 96375; 99285; J2930

== ENCOUNTER 2018-06-27 21:25 | Emergency (ER) | payer MEDICAID ==
[~2018-06-27] VITALS: Ht 165.1 cm; Wt 81.8 kg
[~2018-06-27 21:25] MED LIST changes: +AZIT500T2 PO; +LEVA1.2525 INH; -LEVA1.256 INH
[2018-06-27] MEDS ORDERED: ASPI325T25 PO (21:37)
[2018-06-27] MEDS ORDERED: VENTAER INH ×2 (21:37→22:47)
[2018-06-27 22:01] LABS: VENOUS BASE EXCESS 5.2 (-2.0-2.0); VENOUS HCO3 32.7 MEQ/L (23.0-27.0); VENOUS PARTIAL PRESSURE CO2 59.6 mmHg (38.0-50.0); VENOUS PARTIAL PRESSURE O2 90.8 mmHg (30.0-50.0); VENOUS PH 7.357 UNITS (7.330-7.430); VENOUS STANDARD HCO3 29.1 MEQ/L; VENOUS TOTAL CO2 34.5 MEQ/L (24.0-28.0)
[2018-06-27 22:10] LABS: BASO # 0.1 10^3/uL (0.0-0.2); BASO % 0.5 % (0.0-1.0); EOS # 0.2 10^3/uL (0.0-0.50); EOS % 1.5 % (0.0-3.0); HEMATOCRIT 45.2 % (42.0-52.0); HEMOGLOBIN 14.5 g/dl (13.5-17.5); LYMPH # 2.4 10^3/uL (1.5-4.5); LYMPH % 18.7 % (24.0-44.0); MEAN CORPUSCULAR HEMOGLOBIN 29.7 pg (27.0-33.0); MEAN CORPUSCULAR HGB CONC 32.1 g/dl (32.0-36.5); MEAN CORPUSCULAR VOLUME 92.4 fl (80.0-96.0); MONO # 1.1 10^3/uL (0.0-0.8); MONO % 8.7 % (0.0-5.0); NEUTROPHILS # 9.1 10^3/uL (1.8-7.7); NEUTROPHILS % 70.1 % (36.0-66.0); PLATELET COUNT, AUTOMATED 325 10^3/uL (150-450); RED BLOOD COUNT 4.89 10^6/uL (4.30-6.10)
[2018-06-27 22:25] LABS: BLOOD UREA NITROGEN 13 MG/DL (7-18); CARBON DIOXIDE LEVEL 33 MEQ/L (21-32); CHLORIDE LEVEL 101 MEQ/L (98-107); CPK CREATINE PHOSPHOKINASE 76 U/L (39-308); CREATININE FOR GFR 0.67 MG/DL (0.70-1.30); GLOMERULAR FILTRATION RATE > 60.0 (>56); GLUCOSE, FASTING 136 MG/DL (70-100); MB/CK RELATIVE INDEX 4.21 (< OR =4); POTASSIUM SERUM 4.4 MEQ/L (3.5-5.1); SODIUM LEVEL 140 MEQ/L (136-145); TROPONIN I < 0.02 NG/ML (< 0.10)
[2018-06-27] MEDS ORDERED: methylPREDNISolone INJ 125 MG/2 ML VIAL (J2930) IV ONE (22:45)
[2018-06-27] MEDS ORDERED: ALBUTEROL 90 MCG/ACT 8GM HFA INHALER INH ONE (22:45)
[2018-06-27] MEDS ORDERED: ALBUTEROL 90 MCG/ACT 8GM HFA INHALER INH PRN (22:45)
[2018-06-27] MEDS ORDERED: SING10TA32 PO (22:47)
[2018-06-27] MEDS ORDERED: ADV500INH INH (22:47)
[2018-06-27] MEDS ORDERED: TIOT18INH INH (22:47)
[2018-06-27] MEDS ORDERED: ALBU83IN NEB (22:47)
[2018-06-27] MEDS ORDERED: MEDR4PAK PO (22:47)
[2018-06-27 23:15] VITALS: BP 154/70
--- NOTE | 2018-06-28 08:18 | ECGEPIP ---
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
--- NOTE | 2018-06-28 08:51 | REP ---
PA and lateral chest: Comparisons are the portable chest dated 05/01/2018 and PA and lateral chest dated 02/16/2018. Lung harrell are hyperinflated. There are no infiltrates or effusions. There are no masses or nodules. The cardiac size is normal. The heron, mediastinum, skeletal structures are. Impression: Hyperinflation. Otherwise, negative PA and lateral chest. Electronically Signed by Preet Don MD 06/28/2018 08:42 A
== END 2018-06-27 23:32 | disposition home or self-care (01) ==
LOC: M ED 21:25
DX: J44.1 Chronic obstructive pulmonary disease with (acute) exacerbation (principal); K21.9 Gastro-esophageal reflux disease without esophagitis; M19.90 Unspecified osteoarthritis, unspecified site; Z79.899 Other long term (current) drug therapy
CPT/HCPCS: 71046; 80048; 82550; 82553; 82803; 85025; 93005; 93041; 96374; 99285; J2930

== ENCOUNTER 2018-09-29 12:48 | Emergency (ER) | payer MEDICAID ==
[~2018-09-29] VITALS: Ht 165.1 cm; Wt 127.3 kg
[~2018-09-29 12:48] MED LIST changes: +ASPI-255 PO; +MEDR4PAK PO; +VENTAER INH
[2018-09-29] MEDS ORDERED: IPRATROPIUM 0.5MG/ALBUTEROL 2.5MG INH SOL UD 3ML (DUONEB)(J7620) NEB PRN (14:00)
--- NOTE | 2018-09-29 14:32 | REP ---
Clinical: Cough and dyspnea. Technique: PA and lateral. Comparison: 06/27/2018. Findings: Mediastinum and cardiac silhouette are normal. Increased bilateral coarse and interstitial markings may reflect bronchitis and reactive airway disease as well as subtle basilar atelectasis. No discrete focal consolidation. No effusion. No pneumothorax. Skeletal structures intact. Impression: Coarsened markings may reflect acute bronchitis/reactive airway disease with minimal basilar atelectasis. Electronically Signed by Nolberto Martinez MD 09/29/2018 02:23 P
[2018-09-29 14:42] LABS: VENOUS BASE EXCESS 6.6 (-2.0-2.0); VENOUS HCO3 32.8 MEQ/L (23.0-27.0); VENOUS O2 SATURATION 98.4 % (60.0-80.0); VENOUS PARTIAL PRESSURE O2 95.8 mmHg (30.0-50.0); VENOUS STANDARD HCO3 30.4 MEQ/L; VENOUS TOTAL CO2 34.5 MEQ/L (24.0-28.0)
[2018-09-29 14:47] LABS: BASO % 0.2 % (0.0-1.0); EOS % 0.1 % (0.0-3.0); HEMATOCRIT 46.8 % (42.0-52.0); HEMOGLOBIN 14.8 g/dl (13.5-17.5); LYMPH # 0.5 10^3/uL (1.5-4.5); LYMPH % 2.6 % (24.0-44.0); MEAN CORPUSCULAR HEMOGLOBIN 30.7 pg (27.0-33.0); MEAN CORPUSCULAR HGB CONC 31.6 g/dl (32.0-36.5); MEAN CORPUSCULAR VOLUME 97.1 fl (80.0-96.0); MONO # 1.1 10^3/uL (0.0-0.8); MONO % 5.4 % (0.0-5.0); NEUTROPHILS % 90.9 % (36.0-66.0); PLATELET COUNT, AUTOMATED 317 10^3/uL (150-450); RED BLOOD COUNT 4.82 10^6/uL (4.30-6.10); WHITE BLOOD COUNT 19.8 10^3/uL (4.0-10.0)
[2018-09-29 15:00] LABS: BLOOD UREA NITROGEN 14 MG/DL (7-18); CALCIUM LEVEL 9.1 MG/DL (8.5-10.1); CARBON DIOXIDE LEVEL 32 MEQ/L (21-32); CHLORIDE LEVEL 97 MEQ/L (98-107); CREATININE FOR GFR 0.59 MG/DL (0.70-1.30); GLOMERULAR FILTRATION RATE > 60.0 (>56); GLUCOSE, FASTING 145 MG/DL (70-100); POTASSIUM SERUM 4.8 MEQ/L (3.5-5.1); SODIUM LEVEL 135 MEQ/L (136-145)
[2018-09-29] MEDS ORDERED: PRED20TA PO (15:34)
[2018-09-29] MEDS ORDERED: ALBUTEROL 90 MCG/ACT 8GM HFA INHALER INH SCH (15:45)
[2018-09-29] MEDS ORDERED: ALBUTEROL 90 MCG/ACT 8GM HFA INHALER INH ONE (15:45)
[2018-09-29 15:50] VITALS: BP 137/78
== END 2018-09-29 15:57 | disposition home or self-care (01) ==
LOC: M ED 12:48 → EDUNIT# 12:48 → EDBD 12:48 → M ED 15:57
DX: J44.1 Chronic obstructive pulmonary disease with (acute) exacerbation (principal); E11.9 Type 2 diabetes mellitus without complications; I10 Essential (primary) hypertension; E78.5 Hyperlipidemia, unspecified; M54.9 Dorsalgia, unspecified; Z99.81 Dependence on supplemental oxygen; F17.210 Nicotine dependence, cigarettes, uncomplicated; Z88.0 Allergy status to penicillin; Z79.51 Long term (current) use of inhaled steroids

== ENCOUNTER 2018-10-01 09:14 | Inpatient (IN) | payer MEDICAID ==
[~2018-10-01] VITALS: Ht 165.1 cm; Wt 107.2 kg
[2018-10-01] MEDS: NICOTINE 21MG/24HR 1 EA TRANSDERMAL TD SCH (09:00)
[2018-10-01] MEDS ORDERED: IPRATROPIUM 0.5MG/ALBUTEROL 2.5MG INH SOL UD 3ML (DUONEB)(J7620) NEB ONE (09:30)
[2018-10-01 09:41] LABS: ABG BASE EXCESS 5.9 (-2.0-2.0); ABG HCO3 36.4 MEQ/L (22.0-26.0); ABG O2 SATURATION 98.8 % (95.0-99.0); ABG PARTIAL PRESSURE O2 133.1 mmHg (75.0-100.0); ABG STANDARD HCO3 29.9 MEQ/L (22.0-26.0); ABG TOTAL CO2 38.9 MEQ/L (22.0-29.0); ABG pH (ARTERIAL) 7.268 UNITS (7.350-7.450)
[2018-10-01 09:42] LABS: ABG PARTIAL PRESSURE CO2 81.4 mmHg (35.0-45.0)
[2018-10-01 09:46] LABS: BASO # 0.1 10^3/uL (0.0-0.2); BASO % 0.3 % (0.0-1.0); EOS # 0.1 10^3/uL (0.0-0.50); EOS % 0.6 % (0.0-3.0); HEMATOCRIT 49.3 % (42.0-52.0); HEMOGLOBIN 15.2 g/dl (13.5-17.5); LYMPH # 2.1 10^3/uL (1.5-4.5); LYMPH % 12.4 % (24.0-44.0); MEAN CORPUSCULAR HEMOGLOBIN 30.5 pg (27.0-33.0); MEAN CORPUSCULAR HGB CONC 30.8 g/dl (32.0-36.5); MONO % 13.7 % (0.0-5.0); NEUTROPHILS # 11.9 10^3/uL (1.8-7.7); NEUTROPHILS % 72.2 % (36.0-66.0); PLATELET COUNT, AUTOMATED 428 10^3/uL (150-450); RED BLOOD COUNT 4.98 10^6/uL (4.30-6.10); WHITE BLOOD COUNT 16.5 10^3/uL (4.0-10.0)
--- NOTE | 2018-10-01 09:59 | REP ---
Clinical: Cough and dyspnea. Comparison: 09/29/2018. Findings: Mediastinum and cardiac silhouette are stable. Diffuse coarsened interstitial markings are again appreciated and may reflect bronchitis or reactive airway disease along with minimal left basilar atelectasis. Findings are similar to prior examination. Impression: Diffuse coarsened markings may reflect bronchitis/reactive airway disease with subtle left basilar atelectasis similar to 09/29/2018. Electronically Signed by Nolberto Martinez MD 10/01/2018 09:50 A
[2018-10-01 10:06] LABS: BLOOD UREA NITROGEN 19 MG/DL (7-18); CARBON DIOXIDE LEVEL 37 MEQ/L (21-32); CHLORIDE LEVEL 100 MEQ/L (98-107); CREATININE FOR GFR 0.67 MG/DL (0.70-1.30); GLOMERULAR FILTRATION RATE > 60.0 (>56); GLUCOSE, FASTING 173 MG/DL (70-100); POTASSIUM SERUM 4.9 MEQ/L (3.5-5.1); SODIUM LEVEL 140 MEQ/L (136-145)
[2018-10-01 10:28] LABS: CPK CREATINE PHOSPHOKINASE 266 U/L (39-308); MB/CK RELATIVE INDEX 5.64 (< OR =4); NT-PRO BNP 36 PG/ML (<125); TROPONIN I < 0.02 NG/ML (< 0.10)
[2018-10-01 10:43] LABS: MONO # 2.3 10^3/uL (0.0-0.8)
[2018-10-01] MEDS ORDERED: TIOT18INH INH (11:02)
[2018-10-01] MEDS ORDERED: VENTAER INH (11:02)
[2018-10-01] MEDS ORDERED: ALBU83IN INH (11:02)
[2018-10-01] MEDS ORDERED: MONT10TA2 PO (11:04)
[2018-10-01 11:09] LABS: ABG BASE EXCESS 6.3 (-2.0-2.0); ABG HCO3 35.1 MEQ/L (22.0-26.0); ABG PARTIAL PRESSURE O2 72.4 mmHg (75.0-100.0); ABG STANDARD HCO3 30.1 MEQ/L (22.0-26.0); ABG TOTAL CO2 37.2 MEQ/L (22.0-29.0); ABG pH (ARTERIAL) 7.321 UNITS (7.350-7.450)
[2018-10-01 11:12] LABS: ABG PARTIAL PRESSURE CO2 69.5 mmHg (35.0-45.0)
[2018-10-01] MEDS ORDERED: MOXIFLOXACIN HCL 400 MG in APPROPRIATE DILUENT 1 EA IV ONE (11:30)
[2018-10-01] MEDS ORDERED: ISOVUE-370 76% 100ML VIAL (Q9967) As Ordered ONE (11:46)
[2018-10-01] MEDS: HumaLOG INSULIN (NovoLOG) PER UNIT SC SCH ×3 (12:00→21:00)
[2018-10-01] MEDS ORDERED: methylPREDNISolone INJ 125 MG/2 ML VIAL (J2930) IV ONE (12:00)
--- NOTE | 2018-10-01 12:28 | REP ---
Clinical: Possible aneurysm. Technique: Axial contrast enhanced images from the thoracic inlet to the upper abdomen using angiographic technique with multiplanar re-formations. 100 ml Isovue 370 intravenous contrast material administered without complication. Findings: Examination is somewhat limited by respiratory motion artifact. Thoracic aorta is normal caliber and without evidence for aneurysm. Pulmonary vasculature appears grossly normal. Heart and pericardium are normal and without cardiomegaly or pericardial effusion. Lung harrell demonstrate chronic interstitial changes along with chronic bronchiectasis. Few small scattered areas of tree in bud type infiltrates suggest the possibility of early multifocal pneumonia and should be correlated clinically. No effusion. No pneumothorax. No significant axillary, hilar, or mediastinal adenopathy. Osseous structures are grossly intact and normal. Impression: 1. No evidence for thoracic aortic aneurysm or dissection. 2. Very subtle multifocal infiltrates may reflect early acute pneumonia / pneumonitis and correlation is recommended. Electronically Signed by Nolberto Martinez MD 10/01/2018 12:19 P
[2018-10-01] MEDS ORDERED: GLUCOSE 4 GM CHEW TABLET PO PRN (12:45)
[2018-10-01] MEDS ORDERED: GLUCAGON FOR INJ 1 MG VIAL (J1610) SC PRN (12:45)
[2018-10-01] MEDS ORDERED: DEXTROSE 50% 50 ML SYRINGE IV PRN (12:45)
[2018-10-01] MEDS: IPRATROPIUM 0.5MG/ALBUTEROL 2.5MG INH SOL UD 3ML (DUONEB)(J7620) NEB SCH ×2 (13:20→20:13)
[2018-10-01 13:50] LABS: ABG HCO3 34.4 MEQ/L (22.0-26.0); ABG O2 SATURATION 95.1 % (95.0-99.0); ABG PARTIAL PRESSURE O2 74.9 mmHg (75.0-100.0); ABG STANDARD HCO3 29.8 MEQ/L (22.0-26.0); ABG TOTAL CO2 36.4 MEQ/L (22.0-29.0); ABG pH (ARTERIAL) 7.333 UNITS (7.350-7.450)
--- NOTE | 2018-10-01 13:53 | HPEPDOC ---
General Date of Admission October 01, 2018 at 12:39 Date of Service: October 01, 2018 Chief Complaint The patient is a 53-year-old male who presented to the emergency room with shortness of breath History of Present Illness Patient is a 53-year-old male with a PMHx of COPD on 2L O2, Chronic hypoxic respiratory failure, DLP, Seasonal Allergies, Active tobacco Dependence, GERD who presented to the ER with complaints of shortness of breath. Patient presented to the emergency room on 09/29/2018 for complete, the shortness of breath. At that time, patient was given inhaled therapy and showed i mprovement and with subsequent discharge home with a refill of his nebulizations. Patient reports that he was unable to fill his prescriptions because [facility] pharmacy was unable to deliver the medication because of the long weekend. Patient presents today with complaints of shortness of breath that started at 2 AM associate with significant wheezing. Patient notes that he does experience a cough thats been ongoing for probably 2 weeks. . He notes that he does expectorate sputum. He describes as yellow/white/clear, without evidence of blood. Patient denies any chest pain, palpitations, nausea, vomiting, abdominal pain, diarrhea, obstipation, or urinary discomfort. Patient reports that his weight is been fairly consistent in his appetite is decent. Home Medications Scheduled Montelukast Sodium (Montelukast Sodium) 10 Mg Tablet, 10 MG PO QHS, (Reported) PT NEEDS NEW SCRIPT Tiotropium [place] Monohydrate (Spiriva) 18 Mcg Cap.w.dev, 1 CAP INH DAILY, (Reported) PT NEEDS NEW SCRIPT Scheduled PRN Albuterol Sulf (Albuterol Sulfate) 2.5 Mg/3 Ml Vial.neb, 2.5 MG INH Q4H PRN for SHORTNESS OF BREATH, (Reported) Albuterol Sulfate (Ventolin Hfa) 18 Gm Hfa.aer.ad, 2 PUFF INH Q4H PRN for SHORTNESS OF BREATH, (Reported) Allergies Coded Allergies: amoxicillin (Verified Adverse Reaction, Mild, DIARRHEA, 09/29/18) Past Medical History Medical History COPD on 2L O2, Chronic hypoxic respiratory failure, DLP, Seasonal Allergies, Active tobacco Dependence, GERD Surgical History Patient has denied any surgical history Family History - Patient reports that his mother and father did not have any medical problems, but they are both Social History - Denies the use of alcohol or illicit drugs; patient is an active smoker for 60 years at 1 PPD, he has been trying to cut down - Denies recent travel or sick contacts - Lives alone in an apartment [place] - Occupation; currently on [employer] Review of Systems Other systems 10 point review of systems complete, all negative otherwise stated in HPI Vital Signs - Vitals: BP 137/78, HR 120, RR 22, Sat 93%NC3L, Temp 98.3F - General: Lying in bed, appears unkempt, No acute distress, is able to speak in full sentences, AAOx3 - HEENT: NC, AT, PERRLA, EOMI - CVS: Tachycardic, +S1S2, - Murmurs / rubs / gallops - Lungs: Poor inspiratory effort bilaterally; there is wheezing appreciated at bilateral lung harrell; no appreciable rhonchi or rales - Abdomen: Soft, Non-distended, Non-tender, - Extremities: No lower extremity edema, No calf tenderness - Neuro: No focal motor or sensory deficit - Skin: No visible rashes Laboratory Data Labs 24H Laboratory Tests 2 10/01/18 09:29: Immature Granulocyte % (Auto) 0.8, White Blood Count 16.5H, Red Blood Count 4.98, Hemoglobin 15.2, Hematocrit 49.3, Mean Corpuscular Volume 99.0H, Mean Corpuscular Hemoglobin 30.5, Mean Corpuscular Hemoglobin Concent 30.8L, Red Cell Distribution Width 13.5, Platelet Count 428, Neutrophils (%) (Auto) 72.2H, Lymphocytes (%) (Auto) 12.4L, Monocytes (%) (Auto) 13.7H, Eosinophils (%) (Auto) 0.6, Basophils (%) (Auto) 0.3, Neutrophils # (Auto) 11.9H, Lymphocytes # (Auto) 2.1, Monocytes # (Auto) 2.3H, Eosinophils # (Auto) 0.1, Basophils # (Auto) 0.1, Nucleated Red Blood Cells % (auto) 0.0, Anion Gap 3L, Glomerular Filtration Rate > 60.0, Lactic Acid Level 0.9, Blood Urea Nitrogen 19H, Creatinine 0.67L, Sodium Level 140, Potassium Level 4.9, Chloride Level 100, Carbon Dioxide Level 37H, Calcium Level 9.0, Total Creatine Kinase 266, Creatine Kinase MB 15.0H, Creatine Kinase MB Relative Index 5.64H, Troponin I < 0.02, AW-Ojl-P-Type Natriuretic Peptide 36 10/01/18 09:39: Blood Gas Bicarbonate Standard 29.9H, Arterial Blood pH 7.268L, Arterial Blood Partial Pressure CO2 81.4*H, Arterial Blood Partial Pressure O2 133.1H, Arterial Blood Total CO2 38.9H, Arterial Blood HCO3 36.4H, Arterial Blood Base Excess 5.9H, Arterial Blood Oxygen Saturation 98.8 10/01/18 10:57: Blood Gas Bicarbonate Standard 30.1H, Arterial Blood pH 7.321L, Arterial Blood Partial Pressure CO2 69.5*H, Arterial Blood Partial Pressure O2 72.4L, Arterial Blood Total CO2 37.2H, Arterial Blood HCO3 35.1H, Arterial Blood Base Excess 6.3H, Arterial Blood Oxygen Saturation 95.0 10/01/18 12:49: 10/01/18 13:48: Bedside Glucose (Misc Panel) 199H CBC/BMP Laboratory Tests 10/01/18 09:29 Red Blood Count 4.98, Mean Corpuscular Volume 99.0 H, Mean Corpuscular Hemoglobin 30.5, Mean Corpuscular Hemoglobin Concent 30.8 L, Red Cell Distribution Width 13.5, Neutrophils (%) (Auto) 72.2 H, Lymphocytes (%) (Auto) 12.4 L, Monocytes (%) (Auto) 13.7 H, Eosinophils (%) (Auto) 0.6, Basophils (%) (Auto) 0.3, Neutrophils # (Auto) 11.9 H, Lymphocytes # (Auto) 2.1, Monocytes # (Auto) 2.3 H, Eosinophils # (Auto) 0.1, Basophils # (Auto) 0.1, Calcium Level 9.0, Total Creatine Kinase 266 Microbiology Microbiology 10/01/18 Blood Culture, Received Pending 10/01/18 Blood Culture, Received Pending 10/01/18 Respiratory Virus Panel (PCR) (YAMILE) - Final, Complete Plan / VTE VTE Prophylaxis Ordered?: Yes Plan Plan Shortness of breath - possibly 2/2 underlying obstructive lung disease; possibly 2/2 community acquired pneumonia (Coverage for gram negative pneumonia) - Presented to the ER with complaints of shortness of breath after failing to fill his prescriptions as an outpatient - Patient had noted that he began expressing shortness of breath associated with wheezing and a productive cough - Physical does reveal expiratory wheezing - Patient remains afebrile and hemodynamically stable - ABG was noted with acidosis and PCO2 retention; subsequent ABG has shown improvement with Vapotherm therapy - Leukocytosis is noted - CXR 09/29: Diffuse coarsened markings may reflect bronchitis/reactive airway disease with subtle left basilar atelectasis similar to 09/29/2018. - CT Angio 09/29: 1. No evidence for thoracic aortic aneurysm or dissection. 2. Very subtle multifocal infiltrates may reflect early acute pneumonia / pneumonitis and correlation is recommended. - Will get repeat ABG to confirm patient is having significant improvement in clinical status - Will c/w Moxifloxacin - Will start Solumedrol; Loading dose of 125 and c/w 60 q8h - Will start Duoneb and outpatient inhaled therapy Chronic hypoxic respiratory failure - At baseline patient reports he use 2 L of nasal cannula oxygen - Will taper patients supplemental oxygen down to maintain saturation between 88-92 Patient has reported a history of diabetes - He also notes that he does not take medications and instead uses diet to control this - Will check A1c - Will start insulin sliding scale while inpatient DLP - Will check fasting lipid profile - Currently not on medications Seasonal Allergies - Currently not on medications Active tobacco Dependence - Advised smoking cessation - Will provide patient with nicotine patch GERD - Currently, patient does not take any outpatient medications DVT prophylaxis - Will start COCO Murguia MD October 01, 2018 13:53
[2018-10-01 13:54] LABS: ABG PARTIAL PRESSURE CO2 66.2 mmHg (35.0-45.0)
[2018-10-01 14:09] LABS: CHOLESTEROL LEVEL 128 MG/DL (<200); CHOLESTEROL RISK RATIO 2.461 (<5); HDL CHOLESTEROL 52 MG/DL (>40); LDL CHOLESTEROL 58 MG/DL (<100); NON-HDL-C 76 MG/DL; TRIGLYCERIDES LEVEL 92 MG/DL (<150)
[2018-10-01 14:17] LABS: HEMOGLOBIN A1c 6.7 %
[2018-10-01 15:13] VITALS: BP 138/86
[2018-10-01] MEDS ORDERED: SLF 3 ML SYR IV PRN (15:30)
[2018-10-01] MEDS ORDERED: guaiFENesin 200 MG TAB PO PRN (15:30)
[2018-10-01] MEDS: ENOXAPARIN 40 MG/0.4 ML SYRINGE (J1650) SC SCH (16:26)
[2018-10-01 20:00] VITALS: BP 133/70
[2018-10-01] MEDS ORDERED: ADVAIR HFA 230/21MCG INHALER INH SCH (21:00)
--- NOTE | 2018-10-01 21:03 | ECGEPIP ---
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
[2018-10-01] MEDS: SLF 3 ML SYR IV SCH (21:41)
[2018-10-01] MEDS: MONTELUKAST 10 MG TAB PO SCH (21:41)
[2018-10-01] MEDS: methylPREDNISolone INJ 125 MG/2 ML VIAL (J2930) IV SCH (21:41)
[2018-10-01 23:59] VITALS: BP 119/67
[2018-10-02] MEDS: IPRATROPIUM 0.5MG/ALBUTEROL 2.5MG INH SOL UD 3ML (DUONEB)(J7620) NEB SCH ×4 (01:54→20:26)
[2018-10-02 04:00] VITALS: BP 128/70
[2018-10-02] MEDS: methylPREDNISolone INJ 125 MG/2 ML VIAL (J2930) IV SCH ×3 (04:09→22:13)
[2018-10-02 05:24] LABS: BASO % 0.2 % (0.0-1.0); HEMATOCRIT 44.6 % (42.0-52.0); HEMOGLOBIN 13.9 g/dl (13.5-17.5); LYMPH % 5.8 % (24.0-44.0); MEAN CORPUSCULAR HEMOGLOBIN 30.5 pg (27.0-33.0); MEAN CORPUSCULAR HGB CONC 31.2 g/dl (32.0-36.5); MONO # 1.2 10^3/uL (0.0-0.8); MONO % 6.9 % (0.0-5.0); NEUTROPHILS # 15.1 10^3/uL (1.8-7.7); NEUTROPHILS % 86.1 % (36.0-66.0); PLATELET COUNT, AUTOMATED 405 10^3/uL (150-450); RED BLOOD COUNT 4.55 10^6/uL (4.30-6.10); WHITE BLOOD COUNT 17.5 10^3/uL (4.0-10.0)
[2018-10-02 05:40] LABS: BLOOD UREA NITROGEN 17 MG/DL (7-18); CALCIUM LEVEL 9.3 MG/DL (8.5-10.1); CARBON DIOXIDE LEVEL 37 MEQ/L (21-32); CHLORIDE LEVEL 96 MEQ/L (98-107); CREATININE FOR GFR 0.71 MG/DL (0.70-1.30); GLOMERULAR FILTRATION RATE > 60.0 (>56); GLUCOSE, FASTING 201 MG/DL (70-100); MAGNESIUM LEVEL 2.1 MG/DL (1.8-2.4); POTASSIUM SERUM 4.6 MEQ/L (3.5-5.1); SODIUM LEVEL 138 MEQ/L (136-145)
[2018-10-02] MEDS: SLF 3 ML SYR IV SCH ×3 (06:17→22:08)
[2018-10-02 08:00] VITALS: BP 148/68
[2018-10-02] MEDS: NICOTINE 21MG/24HR 1 EA TRANSDERMAL TD SCH (08:22)
[2018-10-02] MEDS: HumaLOG INSULIN (NovoLOG) PER UNIT SC SCH ×4 (08:23→21:00)
[2018-10-02] MEDS ORDERED: TIOTROPIUM INHALER/CAPSULE (SPIRIVA) INH SCH (09:00)
[2018-10-02] MEDS: LIDOCAINE 5% (LIDODERM) PATCH TD SCH (09:07)
[2018-10-02] MEDS: guaiFENesin ER 600 MG TAB PO SCH ×2 (09:07→22:08)
[2018-10-02] MEDS: IPRATROPIUM 0.5MG/ALBUTEROL 2.5MG INH SOL UD 3ML (DUONEB)(J7620) NEB PRN ×2 (11:20→17:32)
[2018-10-02 12:00] VITALS: BP 130/80
[2018-10-02] MEDS: MOXIFLOXACIN HCL 400 MG in APPROPRIATE DILUENT 1 EA IV SCH (13:27)
[2018-10-02 16:00] VITALS: BP 137/73
--- NOTE | 2018-10-02 16:33 | IPNPDOC ---
Subjective Date Seen The patient was seen on 10/02/18. Subjective Chief Complaint/HPI Shortness of breath Events since last encounter The patient reports he still feels short of breath with minimal activity/m ovement. Still has wheezing. Associated cough but unable to produce too much sputum. Denies associated chest pain. No associated 1 and fevers/chills or sweats. No nausea or vomiting. Tolerating oral intake. Complains of left knee pain that seems to be a chronic problem. Objective Physical Examination General Exam: Positive: Alert, Cooperative, No Acute Distress Eye Exam: Positive: PERRLA Chest Exam: Positive: Wheezing, Other (bilateral diffuse wheeze. No overt distress) Heart Exam: Positive: Rate Normal, Normal S1, Normal S2 Abdomen Exam: Positive: Normal bowel sounds, Soft; Negative: Tenderness Neuro Exam: Positive: Other (awake, alert, answering questions appropriately) Assessment /Plan Assessment Current Medications Albuterol/ Ipratropium (Duoneb (Ipr 0.5mg/Alb 2.5mg)) 3 ml Q2HP PRN NEB SOB/WHEEZING Last administered on 10/02/18at 11:20; Start 10/01/18 at 11:45 Albuterol/ Ipratropium (Duoneb (Ipr 0.5mg/Alb 2.5mg)) 3 ml RQ6H NEB Last administered on 10/02/18at 13:08; Start 10/01/18 at 14:00 Dextrose (Dextrose 50%) 25 ml ASDIRECTED PRN IV SEE LABEL COMMENTS; Start 10/01/18 at 12:45 Enoxaparin Sodium (Lovenox) 40 mg DAILY@1700 SC Last administered on 10/01/18at 16:26; Start 10/01/18 at 17:00 Glucagon (Glucagon) 1 mg ASDIRECTED PRN SC SEE LABEL COMMENTS; Start 10/01/18 at 12:45 Glucose (Glucose) 16 GM ASDIRECTED PRN PO SEE LABEL COMMENTS; Start 10/01/18 at 12:45 Guaifenesin (Mucinex Tab Er) 600 mg BID PO Last administered on 10/02/18at 09:07; Start 10/02/18 at 09:00; Stop 10/07/18 at 08:59 Guaifenesin (Robitussin Tab) 200 mg Q6HP PRN PO CONGESTION; Start 10/01/18 at 15:30; Stop 10/02/18 at 08:57; Status DC Home Med (Med Rec Complete!) ASDIRECTED XX ; Start 10/01/18 at 11:15; Stop 10/01/18 at 11:15; Status DC Insulin Human Lispro (HumaLOG INSULIN) SEE PROTOCOL TABLE AC SC Last administered on 10/02/18at 11:26; Start 10/01/18 at 12:00 Insulin Human Lispro (HumaLOG INSULIN) SEE PROTOCOL TABLE QHS SC ; Start 10/01/18 at 21:00 Lidocaine (Lidoderm Patch) 1 patch DAILY TD Last administered on 10/02/18at 09:07; Start 10/02/18 at 09:00 Methylprednisolone (SOLUmedrol) 60 mg Q8H IV Last administered on 10/02/18at 11:25; Start 10/01/18 at 20:00 Montelukast Sodium (Singulair) 10 mg QHS PO Last administered on 10/01/18at 21:41; Start 10/01/18 at 21:00 Moxifloxacin HCl 400 mg/IV Miscellaneous Supplies 250 ml @ 250 mls/hr Q24H IV Last administered on 10/02/18at 13:27; Start 10/02/18 at 11:00 Nicotine (Nicoderm Cq 21mg) 1 patch DAILY TD ; Start 10/01/18 at 09:00 Non-Formulary Medication ( See Comment Field Below ) REMOVE LIDODERM PATCH DAILY@21 XX ; Start 10/02/18 at 21:00 Salmeterol Xinafoate/ Fluticasone (Advair Hfa 230/ 21) 2 puff BID INH ; Start 10/01/18 at 21:00; Stop 10/01/18 at 21:00; Status DC Sodium Chloride (Saline Lock Flush) 2 ml ASDIRECTED PRN IV SEE LABEL COMMENTS; Start 10/01/18 at 15:30 Sodium Chloride (Saline Lock Flush) 2 ml SLF IV Last administered on 10/02/18at 14:00; Start 10/01/18 at 22:00 Tiotropium [place] (Spiriva Handihaler) 1 inhalation DAILY INH ; Start 10/02/18 at 09:00; Stop 10/02/18 at 09:00; Status DC Acute COPD exacerbation secondary to early community acquired pneumoniamultifocal: -Continue IV Solu-Medrol, supplemental oxygen as neededwean as tolerated -Continue moxifloxacin day 2 -Continue duo nebs Chronic hypoxic respiratory failure - t baseline patient reports he use 2 L of nasal cannula oxygen -Wean supplemental oxygen as tolerated for goal O2 saturation between 88-92 Diet-controlled diabetes mellitus now compensated by hyperglycemia secondary to steroids: -Hemoglobin A1c 6.7 -Continue sliding scale -Anticipate fingersticks should improve as steroids are tapered ? History of hyperlipidemia: -Lipid panel normal -LDL 58, TG 92 Seasonal Allergies - urrently not on medications Active tobacco Dependence -Previously has been advised smoking cessation -Continue nicotine patch GERD -Currently, patient does not take any outpatient medications Left knee pain: -Topical lidocaine patch DVT prophylaxis -Continue enoxaparin Disposition: Anticipate discharge home over the next 48 hours once he is able to be weaned to oral prednisone Plan/VTE VTE Prophylaxis Ordered?: Yes VS, I&O, 24H, Fishbone Vital Signs/I&O Vital Signs Date Time Temp Pulse Resp B/P (MAP) Pulse Ox O2 Delivery O2 Flow Rate FiO2 10/02/18 16:00 98.9 107 20 137/73 (94) 98 3.0 10/01/18 14:44 Nasal Cannula 10/01/18 09:47 94 I&O- Last 24 Hours up to 6 AM 10/02/18 06:00 Intake Total 2400 ml Output Total 2550 ml Balance -150 ml Laboratory Data 24H LABS Laboratory Tests 2 10/01/18 21:24: Bedside Glucose (Misc Panel) 185H 10/02/18 04:40: Immature Granulocyte % (Auto) 1.0, White Blood Count 17.5H, Red Blood Count 4.55, Hemoglobin 13.9, Hematocrit 44.6, Mean Corpuscular Volume 98.0H, Mean Corpuscular Hemoglobin 30.5, Mean Corpuscular Hemoglobin Concent 31.2L, Red Cell Distribution Width 13.2, Platelet Count 405, Neutrophils (%) (Auto) 86.1H, Lymphocytes (%) (Auto) 5.8L, Monocytes (%) (Auto) 6.9H, Eosinophils (%) (Auto) 0.0, Basophils (%) (Auto) 0.2, Neutrophils # (Auto) 15.1H, Lymphocytes # (Auto) 1.0L, Monocytes # (Auto) 1.2H, Eosinophils # (Auto) 0.0, Basophils # (Auto) 0.0, Nucleated Red Blood Cells % (auto) 0.0, Anion Gap 5L, Glomerular Filtration Rate > 60.0, Blood Urea Nitrogen 17, Creatinine 0.71, Sodium Level 138, Potassium Level 4.6, Chloride Level 96L, Carbon Dioxide Level 37H, Calcium Level 9.3, Magnesium Level 2.1 10/02/18 11:13: Bedside Glucose (Misc Panel) 314H CBC/BMP Laboratory Tests 10/02/18 04:40 Red Blood Count 4.55, Mean Corpuscular Volume 98.0 H, Mean Corpuscular Hemoglobin 30.5, Mean Corpuscular Hemoglobin Concent 31.2 L, Red Cell Distribution Width 13.2, Neutrophils (%) (Auto) 86.1 H, Lymphocytes (%) (Auto) 5.8 L, Monocytes (%) (Auto) 6.9 H, Eosinophils (%) (Auto) 0.0, Basophils (%) (Auto) 0.2, Neutrophils # (Auto) 15.1 H, Lymphocytes # (Auto) 1.0 L, Monocytes # (Auto) 1.2 H, Eosinophils # (Auto) 0.0, Basophils # (Auto) 0.0, Calcium Level 9.3 Microbiology Microbiology 10/01/18 Blood Culture - Preliminary, Resulted No growth after 24 hours . All specim... 10/01/18 Blood Culture - Preliminary, Resulted No growth after 24 hours . All specim... 10/01/18 Gram Stain - Final, Resulted 10/01/18 Sputum Culture, Resulted Pending 10/01/18 Respiratory Virus Panel (PCR) (YAMILE) - Final, Complete RITA CALDERA MD October 02, 2018 16:33
[2018-10-02] MEDS: ENOXAPARIN 40 MG/0.4 ML SYRINGE (J1650) SC SCH (17:34)
[2018-10-02 20:00] VITALS: BP 136/75
[2018-10-02] MEDS: **NOTE PATIENT COMMENT** MISC XX SCH (21:00)
[2018-10-02] MEDS: MONTELUKAST 10 MG TAB PO SCH (22:08)
[2018-10-02 23:59] VITALS: BP 138/76
[2018-10-03] MEDS: IPRATROPIUM 0.5MG/ALBUTEROL 2.5MG INH SOL UD 3ML (DUONEB)(J7620) NEB SCH ×4 (01:15→19:24)
[2018-10-03] MEDS: methylPREDNISolone INJ 125 MG/2 ML VIAL (J2930) IV SCH (03:51)
[2018-10-03 04:00] VITALS: BP 126/70
[2018-10-03 05:53] LABS: BASO # 0.1 10^3/uL (0.0-0.2); BASO % 0.3 % (0.0-1.0); HEMATOCRIT 43.8 % (42.0-52.0); HEMOGLOBIN 13.9 g/dl (13.5-17.5); LYMPH # 1.3 10^3/uL (1.5-4.5); LYMPH % 6.6 % (24.0-44.0); MEAN CORPUSCULAR HEMOGLOBIN 30.8 pg (27.0-33.0); MEAN CORPUSCULAR HGB CONC 31.7 g/dl (32.0-36.5); MEAN CORPUSCULAR VOLUME 96.9 fl (80.0-96.0); MONO # 1.2 10^3/uL (0.0-0.8); NEUTROPHILS # 17.1 10^3/uL (1.8-7.7); PLATELET COUNT, AUTOMATED 432 10^3/uL (150-450); RED BLOOD COUNT 4.52 10^6/uL (4.30-6.10); WHITE BLOOD COUNT 20.1 10^3/uL (4.0-10.0)
[2018-10-03 06:15] LABS: BLOOD UREA NITROGEN 17 MG/DL (7-18); CALCIUM LEVEL 9.4 MG/DL (8.5-10.1); CARBON DIOXIDE LEVEL 38 MEQ/L (21-32); CHLORIDE LEVEL 95 MEQ/L (98-107); GLOMERULAR FILTRATION RATE > 60.0 (>56); GLUCOSE, FASTING 248 MG/DL (70-100); MAGNESIUM LEVEL 1.9 MG/DL (1.8-2.4); POTASSIUM SERUM 4.8 MEQ/L (3.5-5.1); SODIUM LEVEL 135 MEQ/L (136-145)
[2018-10-03 08:00] VITALS: BP 134/75
[2018-10-03] MEDS: SLF 3 ML SYR IV SCH ×3 (08:00→21:33)
[2018-10-03] MEDS: NICOTINE 21MG/24HR 1 EA TRANSDERMAL TD SCH (09:00)
[2018-10-03] MEDS: guaiFENesin ER 600 MG TAB PO SCH ×2 (10:04→21:24)
[2018-10-03] MEDS: HumaLOG INSULIN (NovoLOG) PER UNIT SC SCH ×4 (10:04→21:33)
[2018-10-03] MEDS: LIDOCAINE 5% (LIDODERM) PATCH TD SCH (10:04)
[2018-10-03] MEDS: IPRATROPIUM 0.5MG/ALBUTEROL 2.5MG INH SOL UD 3ML (DUONEB)(J7620) NEB PRN ×2 (10:54→15:28)
[2018-10-03] MEDS: MOXIFLOXACIN HCL 400 MG in APPROPRIATE DILUENT 1 EA IV SCH (11:41)
[2018-10-03 12:00] VITALS: BP 148/72
--- NOTE | 2018-10-03 15:41 | IPNPDOC ---
Subjective Date Seen The patient was seen on 10/03/18. Subjective Chief Complaint/HPI Shortness of breath Events since last encounter Aside examined the patient earlier today. He reports the shortness of breath seems a little better. Slight cough. No associated chest pain. No fevers/chills or sweats. Tolerating oral intake. No problems of bladder/bowel habits. Reports that the portable oxygen tank he brought with him is empty and he will require a portable oxygen tank when he is discharged home. Also reports usually uses a wheelchair to get around at home but would like to continue ambulating if possi ble and requests a walker with a seat. Also reports he will need a oxygen regulator with hose/tubing Objective Physical Examination General Exam: Positive: Alert, Cooperative, No Acute Distress, Other (sitting up in bed) Eye Exam: Positive: PERRLA ENT Exam: Positive: Mucous membr. moist/pink Chest Exam: Positive: Wheezing (very slight wheeze), Diminished (diminished air entry bilaterally), Other (no distress) Heart Exam: Positive: Rate Normal, Normal S1, Normal S2 Abdomen Exam: Positive: Normal bowel sounds, Soft; Negative: Tenderness Neuro Exam: Positive: Other (awake, alert, answering questions appropriately) Assessment /Plan Assessment Current Medications Albuterol/ Ipratropium (Duoneb (Ipr 0.5mg/Alb 2.5mg)) 3 ml Q2HP PRN NEB SOB/WHEEZING Last administered on 10/03/18at 15:28; Start 10/01/18 at 11:45 Albuterol/ Ipratropium (Duoneb (Ipr 0.5mg/Alb 2.5mg)) 3 ml RQ6H NEB Last administered on 10/03/18at 13:10; Start 10/01/18 at 14:00 Dextrose (Dextrose 50%) 25 ml ASDIRECTED PRN IV SEE LABEL COMMENTS; Start 10/01/18 at 12:45 Enoxaparin Sodium (Lovenox) 40 mg DAILY@1700 SC Last administered on 10/02/18at 17:34; Start 10/01/18 at 17:00 Glucagon (Glucagon) 1 mg ASDIRECTED PRN SC SEE LABEL COMMENTS; Start 10/01/18 at 12:45 Glucose (Glucose) 16 GM ASDIRECTED PRN PO SEE LABEL COMMENTS; Start 10/01/18 at 12:45 Guaifenesin (Mucinex Tab Er) 600 mg BID PO Last administered on 10/03/18at 10:04; Start 10/02/18 at 09:00; Stop 10/07/18 at 08:59 Guaifenesin (Robitussin Tab) 200 mg Q6HP PRN PO CONGESTION; Start 10/01/18 at 15:30; Stop 10/02/18 at 08:57; Status DC Home Med (Med Rec Complete!) ASDIRECTED XX ; Start 10/01/18 at 11:15; Stop 10/01/18 at 11:15; Status DC Insulin Human Lispro (HumaLOG INSULIN) SEE PROTOCOL TABLE AC SC Last administered on 10/03/18at 12:28; Start 10/01/18 at 12:00 Insulin Human Lispro (HumaLOG INSULIN) SEE PROTOCOL TABLE QHS SC ; Start 10/01/18 at 21:00 Lidocaine (Lidoderm Patch) 1 patch DAILY TD Last administered on 10/03/18at 10:04; Start 10/02/18 at 09:00 Methylprednisolone (SOLUmedrol) 60 mg Q8H IV Last administered on 10/03/18at 03:51; Start 10/01/18 at 20:00; Stop 10/03/18 at 10:23; Status DC Montelukast Sodium (Singulair) 10 mg QHS PO Last administered on 10/02/18at 22:08; Start 10/01/18 at 21:00 Moxifloxacin HCl 400 mg/IV Miscellaneous Supplies 250 ml @ 250 mls/hr Q24H IV Last administered on 10/03/18at 11:41; Start 10/02/18 at 11:00 Nicotine (Nicoderm Cq 21mg) 1 patch DAILY TD ; Start 10/01/18 at 09:00 Non-Formulary Medication ( See Comment Field Below ) REMOVE LIDODERM PATCH DAILY@21 XX Last administered on 10/02/18at 21:00; Start 10/02/18 at 21:00 Prednisone (Deltasone) 40 mg DAILY PO ; Start 10/04/18 at 09:00 Salmeterol Xinafoate/ Fluticasone (Advair Hfa 230/ 21) 2 puff BID INH ; Start 10/01/18 at 21:00; Stop 10/01/18 at 21:00; Status DC Sodium Chloride (Saline Lock Flush) 2 ml ASDIRECTED PRN IV SEE LABEL COMMENTS; Start 10/01/18 at 15:30 Sodium Chloride (Saline Lock Flush) 2 ml SLF IV Last administered on 10/02/18at 22:08; Start 10/01/18 at 22:00 Tiotropium [place] (Spiriva Handihaler) 1 inhalation DAILY INH ; Start 10/02/18 at 09:00; Stop 10/02/18 at 09:00; Status DC Acute COPD exacerbation secondary to early community acquired pneumoniamultifocal: -Taper IV Solu-Medrol- plan to switch to oral prednisone from tomorrow, supplemental oxygen as neededwean as tolerated -Continue moxifloxacin day 3 -Continue duo nebs Chronic hypoxic respiratory failure -At baseline patient reports he use 2 L of nasal cannula oxygen -Wean supplemental oxygen as tolerated for goal O2 saturation between 88-92 Diet-controlled diabetes mellitus now complicated by hyperglycemia secondary to steroids: -Hemoglobin A1c 6.7 -Continue sliding scale -Anticipate fingersticks should improve as steroids are tapered - currently they are running quite elevated secondary to steroids Questionable History of hyperlipidemia: -Lipid panel normal -LDL 58, TG 92 Seasonal Allergies -Currently not on medications Active tobacco Dependence -Previously has been advised smoking cessation -Continue nicotine patch GERD -Currently, patient does not take any outpatient medications Left knee pain: -Topical lidocaine patch DVT prophylaxis -Continue enoxaparin Disposition: Anticipate discharge home tomorrow if he is able to be weaned to oral prednisone. PT/OT evaluation has also been requested to determine home needs. Plan/VTE VTE Prophylaxis Ordered?: Yes VS, I&O, 24H, Fishbone Vital Signs/I&O Vital Signs Date Time Temp Pulse Resp B/P (MAP) Pulse Ox O2 Delivery O2 Flow Rate FiO2 10/03/18 12:00 98.7 107 20 148/72 (97) 97 3.0 10/01/18 14:44 Nasal Cannula 10/01/18 09:47 94 I&O- Last 24 Hours up to 6 AM 10/03/18 06:00 Intake Total 4740 ml Output Total 5375 ml Balance -635 ml Laboratory Data 24H LABS Laboratory Tests 2 10/02/18 17:27: Bedside Glucose (Misc Panel) 289H 10/02/18 22:03: Bedside Glucose (Misc Panel) 218H 10/03/18 05:14: Immature Granulocyte % (Auto) 2.1, White Blood Count 20.1H, Red Blood Count 4.52, Hemoglobin 13.9, Hematocrit 43.8, Mean Corpuscular Volume 96.9H, Mean Corpuscular Hemoglobin 30.8, Mean Corpuscular Hemoglobin Concent 31.7L, Red Cell Distribution Width 13.1, Platelet Count 432, Neutrophils (%) (Auto) 85.0H, Lymphocytes (%) (Auto) 6.6L, Monocytes (%) (Auto) 6.0H, Eosinophils (%) (Auto) 0.0, Basophils (%) (Auto) 0.3, Neutrophils # (Auto) 17.1H, Lymphocytes # (Auto) 1.3L, Monocytes # (Auto) 1.2H, Eosinophils # (Auto) 0.0, Basophils # (Auto) 0.1, Nucleated Red Blood Cells % (auto) 0.0, Anion Gap 2L, Glomerular Filtration Rate > 60.0, Blood Urea Nitrogen 17, Creatinine 0.70, Sodium Level 135L, Potassium Level 4.8, Chloride Level 95L, Carbon Dioxide Level 38H, Calcium Level 9.4, Mag nesium Level 1.9 10/03/18 11:46: Bedside Glucose (Misc Panel) 372H CBC/BMP Laboratory Tests 10/03/18 05:14 Red Blood Count 4.52, Mean Corpuscular Volume 96.9 H, Mean Corpuscular Hemoglobin 30.8, Mean Corpuscular Hemoglobin Concent 31.7 L, Red Cell Distributi on Width 13.1, Neutrophils (%) (Auto) 85.0 H, Lymphocytes (%) (Auto) 6.6 L, Monocytes (%) (Auto) 6.0 H, Eosinophils (%) (Auto) 0.0, Basophils (%) (Auto) 0.3, Neutrophils # (Auto) 17.1 H, Lymphocytes # (Auto) 1.3 L, Monocytes # (Auto) 1.2 H, Eosinophils # (Auto) 0.0, Basophils # (Auto) 0.1, Calcium Level 9.4 Microbiology Microbiology 10/01/18 Blood Culture - Preliminary, Resulted No Growth after 48 hours. All Specime... 10/01/18 Blood Culture - Preliminary, Resulted No Growth after 48 hours. All Specime... 10/01/18 Gram Stain - Final, Resulted 10/01/18 Sputum Culture, Resulted Pending 10/01/18 Respiratory Virus Panel (PCR) ([facility]) - Final, Complete CALDERA,RITA Galvez MD October 03, 2018 15:41
[2018-10-03 16:00] VITALS: BP 148/64
[2018-10-03] MEDS: ENOXAPARIN 40 MG/0.4 ML SYRINGE (J1650) SC SCH (18:13)
[2018-10-03 20:00] VITALS: BP 166/80
[2018-10-03] MEDS ORDERED: methylPREDNISolone INJ 125 MG/2 ML VIAL (J2930) IV ONE (21:00)
[2018-10-03] MEDS: MONTELUKAST 10 MG TAB PO SCH (21:24)
[2018-10-03] MEDS: **NOTE PATIENT COMMENT** MISC XX SCH (21:33)
[2018-10-03 23:59] VITALS: BP 140/75
[2018-10-04] MEDS: IPRATROPIUM 0.5MG/ALBUTEROL 2.5MG INH SOL UD 3ML (DUONEB)(J7620) NEB SCH ×3 (00:01→13:01)
[2018-10-04 04:00] VITALS: BP 134/86
[2018-10-04 05:32] LABS: HEMATOCRIT 42.9 % (42.0-52.0); HEMOGLOBIN 13.5 g/dl (13.5-17.5); MEAN CORPUSCULAR HEMOGLOBIN 29.7 pg (27.0-33.0); MEAN CORPUSCULAR HGB CONC 31.5 g/dl (32.0-36.5); MEAN CORPUSCULAR VOLUME 94.3 fl (80.0-96.0); PLATELET COUNT, AUTOMATED 461 10^3/uL (150-450); RED BLOOD COUNT 4.55 10^6/uL (4.30-6.10); WHITE BLOOD COUNT 17.1 10^3/uL (4.0-10.0)
[2018-10-04 05:54] LABS: BLOOD UREA NITROGEN 18 MG/DL (7-18); CALCIUM LEVEL 8.5 MG/DL (8.5-10.1); CARBON DIOXIDE LEVEL 38 MEQ/L (21-32); CHLORIDE LEVEL 95 MEQ/L (98-107); CREATININE FOR GFR 0.79 MG/DL (0.70-1.30); GLOMERULAR FILTRATION RATE > 60.0 (>56); GLUCOSE, FASTING 264 MG/DL (70-100); MAGNESIUM LEVEL 1.9 MG/DL (1.8-2.4); POTASSIUM SERUM 4.6 MEQ/L (3.5-5.1); SODIUM LEVEL 138 MEQ/L (136-145)
[2018-10-04] MEDS: SLF 3 ML SYR IV SCH ×2 (06:00→13:02)
[2018-10-04 06:23] LABS: BASOPHILS 2 % (0-4); LYMPHOCYTES 9 % (16-52); METAMYELOCYTES 2 % (0-0); MONOCYTES 2 % (0-8); NEUTROPHILS 84 % (35-75); PLATELET ESTIMATE INCREASED (NORMAL)
[2018-10-04] MEDS ORDERED: predniSONE 20 MG TAB PO SCH (09:00)
[2018-10-04] MEDS: NICOTINE 21MG/24HR 1 EA TRANSDERMAL TD SCH (09:00)
[2018-10-04] MEDS: HumaLOG INSULIN (NovoLOG) PER UNIT SC SCH ×2 (10:06→13:01)
[2018-10-04] MEDS: LIDOCAINE 5% (LIDODERM) PATCH TD SCH (10:06)
[2018-10-04] MEDS: guaiFENesin ER 600 MG TAB PO SCH (10:09)
[2018-10-04] MEDS: MOXIFLOXACIN HCL 400 MG in APPROPRIATE DILUENT 1 EA IV SCH (11:00)
[2018-10-04] MEDS ORDERED: MUCI600T31 PO (11:09)
[2018-10-04] MEDS ORDERED: ALBU83IN INH (11:09)
[2018-10-04] MEDS ORDERED: MONT10TA2 PO (11:09)
[2018-10-04] MEDS ORDERED: VENTAER INH (11:09)
[2018-10-04] MEDS ORDERED: PRED20TA PO (11:09)
[2018-10-04] MEDS ORDERED: TIOT18INH INH (11:09)
[2018-10-04] MEDS ORDERED: IPRA0.00 NEB (11:09)
[2018-10-04] MEDS ORDERED: MOXI1TAB PO (11:09)
--- NOTE | 2018-10-04 17:20 | DS.PDOC ---
Discharge Summary General Date of Admission October 01, 2018 at 12:39 Date of Discharge 10/04/18 Discharge Summary PROCEDURES PERFORMED DURING STAY: None. ADMITTING DIAGNOSES: Shortness of breath - possibly 2/2 underlying obstructive lung disease; possibly 2/2 community acquired pneumonia, chronic hypoxic respiratory failure, history of diabetes mellitus, dyslipidemia, seasonal allergies, active tobacco dep endence, GERD DISCHARGE DIAGNOSES: Acute COPD exacerbation secondary to early community acquired pn eumoniamultifocal, chronic hypoxic respiratory failure, and that controlled diabetes mellitus now complicated by hyperglycemia secondary to steroids, questionable history of hyperlipidemiano hyperlipidemia noted on lipid panel, seasonal allergies, nicotine dependence/cigarette smokingpatient counseled regarding quitting smoking, left knee pain, GERD COMPLICATIONS/CHIEF COMPLAINT: Shortness Of Breath. HISTORY OF PRESENT ILLNESS: The patient is a 53-year-old gentleman with a previous history of COPD and chronic hypoxemic respiratory failure secondary to same on 2 L home oxygen 28/11 as well as ongoing cigarette smoking/nicotine dependence who presented to the ER with complaints of shortness of breath. The patient was initially evaluated in the ER on 09/29/18 for shortness of breath and was discharged home after symptoms improved with neb treatmentshe was given a prescription for his name treatments, however, patient wasn't able to get the prescriptions filled secondary to the long weekend and presented to the hospital as noted with increasing shortness of breath. He was admitted to the hospital for further management HOSPITAL COURSE: Acute COPD exacerbation secondary to early community acquired pneumoniamultifocal: -Patient was treated with IV [id number] to oral prednisone - doing well with same. -He was also on IV moxifloxacin - this will be continued on discharge to finish total 7 day treatment -He was on duo nebs and supplemental oxygen as needed Chronic hypoxic respiratory failure -At baseline patient reports he use 2 L of nasal cannula oxygen -Currently he is on 2 L oxygenthis will be continued on discharge Diet-controlled diabetes mellitus now complicated by hyperglycemia secondary to steroids: -Hemoglobin A1c was 6.7 -Patient was on sliding scale -Fingersticks running elevated in 200slikely secondary to steroids. Should improve once he is off the prednisone. Advised outpatient follow-up with primary care provider for further follow-up on same. Questionable History of hyperlipidemia - hyperlipidemia ruled out -Lipid panel normal -LDL 58, TG 92 Seasonal Allergies -Currently not on medications Active tobacco Dependence -Advised patient again today regarding smoking cessationhe understands the same and reports he is working on it. -Does not wish to use nicotine patch GERD -Currently, patient does not take any outpatient medications Left knee pain: -pt was on Topical lidocaine patch - may use OTC topical lidocaine cream on discharge On day of discharge, patient reports he is feeling better. Shortness of breath has improved. Still has some cough. Worked with physical therapyhas been recommended home therapy. Requested shower chairprescription given for same. Prescription also given for 4 wheel walker per PT recommendations. Patient requested prescriptions for all of his home medications as wellthese have been sent to his pharmacy. DISCHARGE MEDICATIONS: Please see below. ALLERGIES: Please see below. PHYSICAL EXAMINATION ON DISCHARGE: VITAL SIGNS: Please see below. GENERAL: Sitting up in bed HEENT: BRITTANIE LOVETT CARDIOVASCULAR EXAMINATION: S1, S2 heard, no rubs or gallops RESPIRATORY EXAMINATION: Diminished air entry bilaterallyno overt wheezing at this time, no distress ABDOMINAL EXAMINATION: Soft, nontender NEUROLOGICAL EXAMINATION: Awake, alert, answering questions appropriately and moving all 4 extremities LABORATORY DATA: Please see below. IMAGING: Chest CTA: Impression: 1. No evidence for thoracic aortic aneurysm or dissection. 2. Very subtle multifocal infiltrates may reflect early acute pneumonia / pneumonitis and correlation is recommended. PROGNOSIS: Fair ACTIVITY: As tolerated. DIET: Carbohydrate controlled DISCHARGE PLAN: Patient will be discharged home today with home health/PT/OT. Outpatient follow-up with Dr. Gu in one week for follow-up on COPD exacerbation/pneumonia as well as further management of diabetes mellitus. DISPOSITION: . DISCHARGE INSTRUCTIONS: 1. . ITEMS TO FOLLOWUP ON ON OUTPATIENT: 1. Follow-up on COPD exacerbation/pneumonia 2. Follow-up on diabetes mellitushyperglycemia. Currently fingersticks elevated likely secondary to steroids. Will need monitoring of same once off steroids and may require consideration for metformin if still hyperglycemic. 3. Outpatient follow-up with pulmonology as previously recommended by Dr. Gu DISCHARGE CONDITION: Stable. TIME SPENT ON DISCHARGE: 40 minutes. Vital Signs/I&Os Vital Signs Date Time Temp Pulse Resp B/P (MAP) Pulse Ox O2 Delivery O2 Flow Rate FiO2 10/04/18 04:00 2.0 10/04/18 04:00 97.6 95 20 134/86 (102) 96 10/01/18 14:44 Nasal Cannula 10/01/18 09:47 94 I&O- Last 24 Hours up to 6 AM 10/04/18 05:59 Intake Total 3770 ml Output Total 3975 ml Balance -205 ml Laboratory Data Labs 24H Laboratory Tests 2 10/03/18 11:46: Bedside Glucose (Misc Panel) 372H 10/03/18 18:06: Bedside Glucose (Misc Panel) 259H 10/03/18 21:26: Bedside Glucose (Misc Panel) 288H 10/04/18 05:09: Immature Granulocyte % (Auto) , Nucleated Red Blood Cells % (auto) 0.0, Neutrophils 84H, Band Neutrophils 1, Lymphocytes (Manual) 9L, Monocytes (Manual) 2, Basophils (Manual) 2, Metamyelocytes 2H, Platelet Estimate INCREASED, Red Blood Cell Morphology NORMAL, Anion Gap 5L, Glomerular Filtration Rate > 60.0, Blood Urea Nitrogen 18, Creatinine 0.79, Sodium Level 138, Potassium Level 4.6, Chloride Level 95L, Carbon Dioxide Level 38H, Calcium Level 8.5, Magnesium Level 1.9 CBC/BMP Laboratory Tests 10/04/18 05:09 Red Blood Count 4.55, Mean Corpuscular Volume 94.3, Mean Corpuscular Hemoglobin 29.7, Mean Corpuscular Hemoglobin Concent 31.5 L, Red Cell Distribution Width 13.2, Calcium Level 8.5 FSBS Laboratory Tests Test 10/03/18 11:46 10/03/18 18:06 10/03/18 21:26 Range/Units Bedside Glucose (Misc Panel) 372 259 288 70-105 MG/DL Microbiology Microbiology 10/01/18 Blood Culture - Preliminary, Resulted No Growth after 48 hours. All Specime... 10/01/18 Blood Culture - Preliminary, Resulted No Growth after 72 hours. All specime... 10/01/18 Gram Stain - Final, Resulted 10/01/18 Sputum Culture - Preliminary, Resulted Staphylococcus Aureus 10/01/18 Respiratory Virus Panel (PCR) ([facility]) - Final, Complete Discharge Medications Scheduled Guaifenesin (Mucinex) 600 Mg Tab.er.12h, 600 MG PO BID Ipratropium/Albuterol Sulfate (Iprat-Albut 0.5-3(2.5) mg/3 ml) 3 Ml Ampul.neb, 3 ML NEB QID Montelukast Sodium (Montelukast Sodium) 10 Mg Tablet, 10 MG PO QHS PT NEEDS NEW SCRIPT Moxifloxacin HCl (Moxifloxacin HCl) 400 Mg Tablet, 400 MG PO DAILY Prednisone (Prednisone) 20 Mg Tablet, 40 MG PO DAILY 2 tabs daily x 5 days, then 1 tab daily x 5 days, then 0.5 tab daily x 6 days Tiotropium [place] Monohydrate (Spiriva) 18 Mcg Cap.w.dev, 1 CAP INH DAILY Scheduled PRN Albuterol Sulf (Albuterol Sulfate) 2.5 Mg/3 Ml Vial.neb, 2.5 MG INH Q4H PRN for SHORTNESS OF BREATH Albuterol Sulfate (Ventolin Hfa) 18 Gm Hfa.aer.ad, 2 PUFF INH Q4H PRN for SHORTNESS OF BREATH Allergies Coded Allergies: amoxicillin (Verified Adverse Reaction, Mild, DIARRHEA, 09/29/18) RITA CALDERA MD October 04, 2018 11:10
== END 2018-10-04 14:07 | disposition home health service (06) | DRG 140 ==
LOC: M ED 09:14 → EDBD 09:14 → M ED INP 12:39 → M PCU 14:59
PROVIDERS: ADMIT Internal Medicine; ATTEND Internal Medicine
DX: J44.0 Chronic obstructive pulmonary disease with (acute) lower respiratory infection (principal); J18.9 Pneumonia, unspecified organism; J96.11 Chronic respiratory failure with hypoxia; E11.65 Type 2 diabetes mellitus with hyperglycemia; E11.9 Type 2 diabetes mellitus without complications; E78.5 Hyperlipidemia, unspecified; Z79.899 Other long term (current) drug therapy; K21.9 Gastro-esophageal reflux disease without esophagitis; F17.210 Nicotine dependence, cigarettes, uncomplicated; Z88.0 Allergy status to penicillin; Z79.4 Long term (current) use of insulin

== ENCOUNTER 2018-12-31 15:03 | Emergency (ER) | payer MEDICAID ==
[~2018-12-31] VITALS: Ht 165.1 cm; Wt 127.3 kg
[~2018-12-31 15:03] MED LIST changes: -AZIT500T2 PO; +AZIT500T5 PO; +MONT10TA2 PO; +MOXI1TAB PO; +MUCI600T31 PO; -SIMV40TA2 PO; +SIMV40TA20 PO
[2018-12-31] MEDS ORDERED: NS 1,000 ML IV SCH (16:31)
[2018-12-31] MEDS ORDERED: methylPREDNISolone INJ 125 MG/2 ML VIAL (J2930) IV ONE (16:45)
[2018-12-31] MEDS: IPRATROPIUM 0.5MG/ALBUTEROL 2.5MG INH SOL UD 3ML (DUONEB)(J7620) NEB PRN ×3 (16:59→17:39)
[2018-12-31 17:01] LABS: ABG BASE EXCESS 8.6 (-2.0-2.0); ABG HCO3 36.5 MEQ/L (22.0-26.0); ABG PARTIAL PRESSURE O2 78.7 mmHg (75.0-100.0); ABG STANDARD HCO3 32.4 MEQ/L (22.0-26.0); ABG TOTAL CO2 38.5 MEQ/L (22.0-29.0); ABG pH (ARTERIAL) 7.382 UNITS (7.350-7.450)
[2018-12-31 17:07] LABS: ABG PARTIAL PRESSURE CO2 62.9 mmHg (35.0-45.0)
[2018-12-31 17:26] LABS: INR 0.94; PROTHROMBIN TIME 12.3 SECONDS (11.8-14.0)
[2018-12-31 17:27] LABS: BASO # 0.1 10^3/uL (0.0-0.2); BASO % 0.5 % (0.0-1.0); EOS # 0.4 10^3/uL (0.0-0.50); EOS % 3.3 % (0.0-3.0); HEMATOCRIT 51.5 % (42.0-52.0); LYMPH # 1.7 10^3/uL (1.5-4.5); LYMPH % 14.2 % (24.0-44.0); MEAN CORPUSCULAR HEMOGLOBIN 29.9 pg (27.0-33.0); MEAN CORPUSCULAR HGB CONC 31.5 g/dl (32.0-36.5); MEAN CORPUSCULAR VOLUME 95.2 fl (80.0-96.0); MONO % 8.8 % (0.0-5.0); NEUTROPHILS # 8.5 10^3/uL (1.8-7.7); NEUTROPHILS % 72.8 % (36.0-66.0); PLATELET COUNT, AUTOMATED 313 10^3/uL (150-450); RED BLOOD COUNT 5.41 10^6/uL (4.30-6.10); WHITE BLOOD COUNT 11.6 10^3/uL (4.0-10.0)
[2018-12-31 17:32] LABS: HEMOGLOBIN 16.2 g/dl (13.5-17.5)
[2018-12-31 17:34] LABS: BLOOD UREA NITROGEN 12 MG/DL (7-18); CALCIUM LEVEL 9.7 MG/DL (8.5-10.1); CARBON DIOXIDE LEVEL 39 MEQ/L (21-32); CHLORIDE LEVEL 96 MEQ/L (98-107); CREATININE FOR GFR 0.76 MG/DL (0.70-1.30); GLOMERULAR FILTRATION RATE > 60.0 (>56); GLUCOSE, FASTING 128 MG/DL (70-100); POTASSIUM SERUM 4.1 MEQ/L (3.5-5.1); SODIUM LEVEL 137 MEQ/L (136-145)
[2018-12-31] MEDS ORDERED: PRED20TA PO (19:29)
[2018-12-31] MEDS ORDERED: PROAAER10 INH (19:29)
[2018-12-31] MEDS ORDERED: ALBU83IN NEB (19:29)
[2018-12-31 20:06] VITALS: BP 148/98
--- NOTE | 2018-12-31 20:52 | ECGEPIP ---
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
--- NOTE | 2019-01-01 06:44 | REP ---
CHEST, PORTABLE: Two AP portable views of the chest are performed. There is chronic interstitial prominence in the lung bases without evidence of acute infiltrate. The heart is not enlarged. The mediastinal silhouette is unchanged. IMPRESSION: Chronic changes without acute infiltrate. Electronically Signed by Preet Nair MD 01/01/2019 11:51 P
== END 2018-12-31 20:05 | disposition home or self-care (01) ==
LOC: M ED 15:03
DX: J44.1 Chronic obstructive pulmonary disease with (acute) exacerbation (principal); I10 Essential (primary) hypertension; Z72.0 Tobacco use; Z79.899 Other long term (current) drug therapy; Z88.0 Allergy status to penicillin
CPT/HCPCS: 36600; 71045; 80048; 82803; 83605; 85025; 85610; 87040; 93005; 93041; 94640; 96374; 99285; J2930

== ENCOUNTER 2019-01-18 03:30 | Inpatient (IN) | payer MEDICAID ==
[2019-01-18] VITALS (56 sets, daily range): BP systolic 53–142; BP diastolic 35–82; O2SAT 92
[~2019-01-18] VITALS: Ht 175.3 cm; Wt 110.5 kg
[~2019-01-18 03:30] MED LIST changes: +AZIT500T2 PO; -AZIT500T5 PO; +SIMV40TA2 PO; -SIMV40TA20 PO
[2019-01-18] MEDS ORDERED: NOREPINEPHRINE 4 MG/4 ML AMP As Ordered ONE ×4 (03:36→03:40)
[2019-01-18] MEDS ORDERED: NOREPINEPHRINE BITARTRATE 8 MG in D5W 492 ML IV SCH (03:45)
[2019-01-18] MEDS ORDERED: NS 1,000 ML IV ONE (03:45)
[2019-01-18 03:51] LABS: VENOUS BASE EXCESS -11.1 (-2.0-2.0); VENOUS HCO3 27.9 MEQ/L (23.0-27.0); VENOUS PARTIAL PRESSURE CO2 170.3 mmHg (38.0-50.0); VENOUS PARTIAL PRESSURE O2 104.9 mmHg (30.0-50.0); VENOUS PH 6.832 UNITS (7.330-7.430); VENOUS STANDARD HCO3 15.9 MEQ/L; VENOUS TOTAL CO2 33.1 MEQ/L (24.0-28.0)
[2019-01-18] MEDS ORDERED: ISOVUE-370 76% 100ML VIAL (Q9967) As Ordered ONE (03:53)
[2019-01-18 03:57] LABS: HEMATOCRIT 52.7 % (42.0-52.0); HEMOGLOBIN 15.4 g/dl (13.5-17.5); MEAN CORPUSCULAR HGB CONC 29.2 g/dl (32.0-36.5); MEAN CORPUSCULAR VOLUME 102.5 fl (80.0-96.0); RED BLOOD COUNT 5.14 10^6/uL (4.30-6.10); WHITE BLOOD COUNT 21.2 10^3/uL (4.0-10.0)
[2019-01-18 03:58] LABS: PLATELET COUNT, AUTOMATED 242 10^3/uL (150-450)
[2019-01-18 04:17] LABS: ATYPICAL LYMPH 2 % (0-5); LYMPHOCYTES 25 % (16-44); METAMYELOCYTES 4 % (0-0); MONOCYTES 5 % (0-5); MYELOCYTES 1 % (0-0); NEUTROPHILS 62 % (28-66)
[2019-01-18 04:18] LABS: PLATELET ESTIMATE NORMAL (NORMAL)
[2019-01-18] MEDS ORDERED: LABETALOL HCL 100 MG/20 ML VIAL As Ordered ONE (04:47)
[2019-01-18] MEDS ORDERED: LABETALOL HCL 100 MG/20 ML VIAL IV STA (04:56)
[2019-01-18] MEDS ORDERED: FLUT22IN INH (05:28)
[2019-01-18] MEDS ORDERED: ATOR40TA75 PO (05:28)
[2019-01-18] MEDS ORDERED: ALBU83IN INH (05:28)
[2019-01-18] MEDS ORDERED: OMEP-218 PO (05:28)
[2019-01-18] MEDS ORDERED: SPIR1CAP INH (05:28)
[2019-01-18] MEDS ORDERED: MONT10TA2 PO (05:28)
[2019-01-18] MEDS ORDERED: PROAAER10 INH ×2 (05:28→05:29)
[2019-01-18] MEDS ORDERED: SYMB16INH INH (05:28)
[2019-01-18] MEDS ORDERED: MORPHINE 4 MG/ML 1ML VIAL/SYRINGE (J2270) IV PRN ×2 (05:30→18:15)
[2019-01-18] MEDS ORDERED: MIDAZOLAM INJ 2 MG/2 ML VIAL (J2250) IV PRN (05:30)
[2019-01-18 05:33] LABS: ALBUMIN 2.7 GM/DL (3.2-5.2); ALT/SGPT 85 U/L (12-78); BILIRUBIN,DIRECT 0.1 MG/DL (0.0-0.2); BILIRUBIN,TOTAL 0.4 MG/DL (0.2-1.0); BLOOD UREA NITROGEN 11 MG/DL (7-18); CALCIUM LEVEL 9.5 MG/DL (8.5-10.1); CARBON DIOXIDE LEVEL 28 MEQ/L (21-32); CHLORIDE LEVEL 95 MEQ/L (98-107); CK-MB VALUE MASS 3.6 NG/ML (<3.6); CPK CREATINE PHOSPHOKINASE 118 U/L (39-308); CREATININE FOR GFR 1.36 MG/DL (0.70-1.30); GLOMERULAR FILTRATION RATE 58.1 (>56); GLUCOSE, FASTING 356 MG/DL (70-100); MB/CK RELATIVE INDEX 3.05 (< OR =4); POTASSIUM SERUM 5.2 MEQ/L (3.5-5.1); SODIUM LEVEL 140 MEQ/L (136-145); TOTAL PROTEIN 6.2 GM/DL (6.4-8.2); TROPONIN I < 0.02 NG/ML (< 0.10)
[2019-01-18 05:54] LABS: ABG BASE EXCESS -0.9 (-2.0-2.0); ABG HCO3 31.5 MEQ/L (22.0-26.0); ABG O2 SATURATION 98.5 % (95.0-99.0); ABG PARTIAL PRESSURE O2 144.9 mmHg (75.0-100.0); ABG STANDARD HCO3 23.8 MEQ/L (22.0-26.0); ABG TOTAL CO2 34.2 MEQ/L (22.0-29.0)
[2019-01-18 05:57] LABS: ABG PARTIAL PRESSURE CO2 90.3 mmHg (35.0-45.0)
[2019-01-18] MEDS: D5W/0.45% SODIUM CHLORIDE 1,000 ML IV SCH ×3 (06:28→22:34)
--- NOTE | 2019-01-18 06:59 | HPE ---
HISTORY AND PHYSICAL/CRITICAL CARE NOTE DATE OF ADMISSION: 01/18/2019 START TIME: 0500 STOP TIME: 05 I attended Altaf Valdivia in the emergency room. The patient has been examined and the chart reviewed. In essence, this is a 53-year-old gentleman with long standing tobacco abuse and known chronic hypoxemic and hypercapnic respiratory failure most recently admitted on 10/01/2018 and discharged on 10/04/2018 with an exacerbation of his obstructive lung disease. He is known to have continued tobacco abuse. He was apparently found down earlier this morning by an acquaintance. Presenting rhythm was asystole. ACLS protocol was followed. A Cosme tube was in initially. This was replaced in the ER by an endotracheal tube. A perfusable rhythm was able to be obtained. CT scan done of his brain in the ER shows complete loss of effacement consistent with diffuse anoxic injury. Initially in the ER, he was hypotensive and placed on Levophed briefly. He then became hypertensive. He is unable to give any history. ALLERGIES: Listed to - AMOXICILLIN MEDICATIONS AT HOME: - Singulair - Spiriva PAST MEDICAL HISTORY: Significant for his chronic hypoxemic and hypercapnic respiratory failure oxygen requiring, advanced obstructive lung disease and hypercholesterolemia. SOCIAL HISTORY: He lives here in the [facility]. Apparently, listed as alone, but was found by a roommate. FAMILY HISTORY: Currently unobtainable, but past records state no active medical issues. REVIEW OF SYSTEMS: Essentially unobtainable as he is unresponsive. PHYSICAL EXAMINATION: Currently reveals an unresponsive gentleman intubated here in the ER. Heart rate 86 with a sinus mechanism. Blood pressure 148 systolic. He does not trigger the vent, although there are some respiratory efforts. Currently temperature 97.6. HEENT: Shows the oral endotracheal and orogastric tubes in place. Pupils are small and midpoint and do not react. Membranes are moist. Chest shows diminished, but symmetric expansion. There is expiratory wheezing. No obvious crackles. Expansion is diminished, but symmetric. Cardiac Exam: Distant, but regular. Peripheral pulses markedly diminished. Trace edema. Abdomen: Morbidly obese. Somewhat quiet. No obvious organomegaly or masses. Extremities: Show no cyanosis or clubbing. Neurologically, he is unresponsive to pain. No obvious corneals, but he does over breathe the ventilator. No obvious gag. LABORATORY DATA: White blood cell count 21.2, hemoglobin 15.4 and platelet count 242,000, 62% segs, 1% bands. Sodium 140, potassium 5.2, chloride 95, CO2 28, BUN 11, creatinine 1.36. Currently lactate 11.0. AST and ALT 86 and 85 respectively. Alkaline phosphatase 134. First venous blood gas shows a pH of 6.8, pCO2 of 170, pO2 of 104. Repeat gas is currently pending. Chest x-ray shows hyperexpansion with the endotracheal tube in good position. No obvious infiltrates. CT angio was attempted, but contrast was not timed well. There is some mild ground glass opacities at the right base, but no other obvious abnormalities. No pneumothorax. CT scan of the head shows complete loss of effacement consistent with very significant anoxic injury. Initial EKG shows a sinus tachycardia, diffuse ST-T wave abnormalities. IMPRESSION: 1. Cardiac arrest. Primary etiology unknown. 2. Anoxic brain injury. 3. Essentially end stage obstructive lung disease. 4. Continued tobacco abuse. RECOMMENDATIONS: At this point, it appears he has had a devastating neurologic injury. He does over breathe the ventilator. He is unresponsive to all stimuli and has not received sedatives here in the ER. There is no available family or anyone to discuss code status with and therefore at this point he is a full code. For his known advanced obstructive lung disease, we will begin IV steroids and aggressive nebulized bronchodilators. Ventilator adjustments will be made. He very likely may have had a primary arrhythmia that decayed into asystole or certainly could have had a primary cardiac event given his risk factors. His ECG abnormalities certainly could be consistent with his severe acidosis as well. I do not believe his lactic acid is secondary to sepsis, but from diffuse hypoperfusion. At this point, he is not hypotensive. There is no obvious infiltrates on his x-ray. For now, we will hold on empiric antimicrobials. Ulcer and deep vein thrombosis (DVT) prophylaxis are in place. Repeat laboratories are pending. We will begin maintenance IV fluids. Crocker is in place. At this point, survival is highly unlikely given his presentation and findings on exam and CT of his brain. At this point, we will continue with full support. We will continue to attempt to find family. Further recommendations will be made as new information becomes available. I left the bedside at 0537 hours. 37 minutes of critical care time delivered at the bed side, not including procedures.
[2019-01-18] MEDS: HEPARIN SOD (PORCINE) 5000 UNITS/ML VIAL SC SCH ×3 (07:00→22:34)
[2019-01-18] MEDS: methylPREDNISolone INJ 125 MG/2 ML VIAL (J2930) IV SCH ×3 (07:00→22:33)
[2019-01-18] MEDS: IPRATROPIUM 0.5MG/ALBUTEROL 2.5MG INH SOL UD 3ML (DUONEB)(J7620) NEB SCH ×4 (07:52→21:24)
--- NOTE | 2019-01-18 08:10 | REP ---
Portable chest x-ray: Single view. History: Intubation. Comparison chest x-ray: December 31, 2018. Findings: The right lateral chest wall is excluded from the field of view. Endotracheal tube is seen in good position. EKG electrodes are noted. The lungs are symmetrically aerated. No focal infiltrate. Electronically Signed by Hoang Marquis MD 01/18/2019 08:02 A
--- NOTE | 2019-01-18 08:12 | REP ---
REPEAT DICTATION CT BRAIN WITHOUT CONTRAST: HISTORY: Cardiac arrest. Preliminary report is provided at the time of exam by [facility]. No comparison brain imaging. FINDINGS: Preliminary digital professor of business radiograph demonstrates orotracheal and oral esophageal catheters. No intraorbital abnormality is seen. The bony calvarium appears intact. There is evidence of an old blowout fracture of the medial wall of the right orbit. No other intraorbital abnormality is seen. Vascular calcification is noted in the distal carotid arteries. On soft tissue window settings, there is extensive complete loss of ro-white differentiation throughout the supratentorial and infratentorial brain consistent with severe anoxic brain injury. There is no evidence of intracranial hemorrhage. No masses seen. No midline shift is observed. IMPRESSION: Complete loss of ro-white differentiation most consistent with anoxic brain injury and diffuse cerebral edema. Electronically Signed by Hoang Marquis MD 01/18/2019 09:16 A
--- NOTE | 2019-01-18 08:41 | REP ---
CT abdomen and pelvis with IV contrast: History: Cardiac arrest. Repeat dictation. Preliminary report is provided at time of exam by [facility]. CT contrast dose: 100 ml of intravenous Isovue 370. Findings: Preliminary chief enterprise architect radiograph demonstrates gaseous distension of right and transverse colon and sigmoid colon loops. The patient is rotated somewhat to the left in the CT gantry. The liver is normal size, homogeneous in texture. Small spleen is seen otherwise unremarkable. No adrenal lesion is observed. No abnormality is noted in the pancreas. Gallbladder is small and contracted. There is a large cyst in the upper pole of the right kidney unchanged from comparison study September 25, 2015. The kidneys are morphologically unchanged. No hydronephrosis is seen. No retroperitoneal mass or adenopathy is observed. Normal caliber aorta is seen. There is moderate stool and gas content throughout the colon. No colonic obstructive lesion is appreciated. Gas seen extending through to the rectum. Seminal vesicles, prostate and urinary bladder are unremarkable. There is no evidence of free intraperitoneal air. No abdominal wall defect is seen. No bony destructive lesion is appreciated. Impression: No acute intra-abdominal abnormality. Electronically Signed by Hoang Marquis MD 01/18/2019 09:16 A
--- NOTE | 2019-01-18 08:59 | REP ---
REPEAT DICTATION CT PULMONARY ANGIOGRAM: With IV contrast. HISTORY: Cardiac arrest. Preliminary report is provided at the time of exam by [facility]. COMPARISON STUDIES: Comparison CT study October 01, 2018. CONTRAST DOSE: 100 mL of Isovue [address] TECHNIQUE: Helical scanning is acquired and overlapping 1.5 mm and contiguous 3 mm axial images are reformatted. In addition, maximum intensity projection and multiplanar re-formation images are generated in sagittal and coronal imaging projections. CT PULMONARY ANGIOGRAPHIC FINDINGS: Preliminary quality assurance/r&d lab technician radiograph shows an endotracheal tube in place. The patient is rotated somewhat to the left. There is fair opacification of the pulmonary arterial tree. No filling defect is seen although contrast opacification is slightly less than optimal. There is no evidence of aortic aneurysm or dissection. No mass or adenopathy is seen in the mediastinum or hilar regions. There is no evidence of pleural effusion or pericardial effusion. There are numerous bilateral anterior rib fractures consistent with a history of resuscitation. There is a tiny left anterior inferior pneumothorax. There is no evidence of pulmonary infiltrate or hemorrhage. There are small scattered peribronchovascular opacities in the lower lobes bilaterally consistent with infectious or inflammatory lung changes. Similar findings were observed previously. No large infiltrate is seen. Endotracheal tube is seen in good position. No abnormalities seen in the adrenals. IMPRESSION: Slightly less than optimal contrast opacification but no CT evidence of pulmonary embolus or acute aortic abnormality. Multiple anterior rib fractures. Tiny left anterior pneumothorax. Scattered lower lobe pulmonary parenchymal opacities consistent with subtle infiltrates. Electronically Signed by Hoang Marquis MD 01/18/2019 09:17 A
--- NOTE | 2019-01-18 09:34 | CCN ---
DATE OF VISIT: 01/18/2019 START TIME: 0845 STOP TIME: 09 I again attended Altaf Valdivia now here in the intensive care unit. The patient has been examined and the chart reviewed. I spoke at length with the nurse at the bedside. We have yet been unable to reach family. Reports now are that he may actually live with his sister. Current blood pressure 117 systolic, heart rate 70 to 90s with a sinus mechanism and he does over breathe the vent with respiratory rate between 20 and 24 without obvious accessory muscle use. He remains afebrile. Repeat laboratories show a lactic acid now down to 2.5. Repeat blood gas done at 0545 has a pH of 7.160, pCO2 of 90.3 and pO2 of 144.9. Ventilator manipulations have been made by myself. On exam, he remains essentially unresponsive. He does over breathe the ventilator. Pupils are 4-5 mm, but remain nonreactive to light. No corneals. No cough. Membranes are moist. Chest shows less wheezing with some occasional rhonchi. Expansion is symmetric. Cardiac exam is regular. Peripheral pulses diminished, but palpable. Trace edema. Abdomen less distended. No obvious bowel sounds. Extremities without cyanosis or clubbing. There may be early mottling at the knees. Neurologically he is minimally responsive to painful stimuli. He withdraws some on the left arm, but no significant withdrawal on the right. Other repeat laboratories currently pending. Troponin is negative. The most pressing problems requiring my immediate presence at the bedside: 1. Acute on chronic respiratory failure, both hypoxemic and hypercapnic, requiring mechanical ventilatory support. 2. Status post cardiac arrest. 3. End stage obstructive lung disease. 4. Long standing tobacco abuse. At this point, we will continue supportive care. We are unable to reach family. He clearly does not meet brain criteria. Will likely repeat a CT scan tomorrow morning. At that point, I will likely involve neurology in his care as well. At this point, we will continue aggressive treatment for his lung disease with steroids and aerosolized bronchodilators. I do not see a role for antimicrobials. Ulcer and deep vein thrombosis (DVT) prophylaxis are in place. Given his current status and his presentation, survival is unlikely. We will continue to attempt to reach family. There is no answer at the only contact number in the chart. He remains critically ill and I left the bedside at 0911 hours. 26 minutes of critical care time delivered at the bedside, not including procedures.
--- NOTE | 2019-01-18 10:32 | REP ---
All chest x-ray: Single view. History: Central line placement. Comparison study: January 18, 2019. Findings: The lungs are symmetrically somewhat hyperinflated but clear. Endotracheal tube is seen in good position. A nasogastric tube is visible in the mediastinum. Its distal end is seen in the left upper quadrant. A right sided central venous line is seen terminating in the expected location of the superior vena cava. There is no evidence of pneumothorax. EKG electrodes are seen. Electronically Signed by Hoang Marquis MD 01/18/2019 10:22 A
--- NOTE | 2019-01-18 10:37 | RO ---
DATE OF PROCEDURE: 01/18/2019 PROCEDURE: Insertion of triple lumen central venous catheter. PREPROCEDURE DIAGNOSIS: Hypotension. POSTPROCEDURE DIAGNOSIS: Hypotension. SURGEON: Dr. Juventino Fraser POOLING OPERATOR: ANESTHESIA: The procedure was performed emergently. PROCEDURE: After the right subclavian area was prepped and draped in the usual sterile manner, the right subclavian vein was easily cannulated with a large bore needle. In a modified Seldinger technique, a triple lumen central venous catheter was easily placed. Good return was obtained from all three ports. The port was then flushed. The line was then sutured in place and a sterile dressing applied. Chest x-ray done immediately postprocedure shows no evidence of pneumothorax and the line is in acceptable position. No complications noted. The patient tolerated the procedure well.
[2019-01-18] MEDS: CHLORHEXIDINE GLUCONATE 0.12 % 15ML UDC (PERIDEX ORAL RINSE) MT SCH ×2 (10:43→22:33)
[2019-01-18] MEDS: PANTOPRAZOLE 40MG INJ (PROTONIX) (C9113) IV SCH (10:43)
[2019-01-18] MEDS ORDERED: NS 500 ML IV ONE ×3 (11:00→23:00)
[2019-01-18 11:44] LABS: CK-MB VALUE MASS 9.3 NG/ML (<3.6); MB/CK RELATIVE INDEX 2.61 (< OR =4); TROPONIN I 0.44 NG/ML (< 0.10)
[2019-01-18 14:22] LABS: ABG BASE EXCESS 1.7 (-2.0-2.0); ABG HCO3 28.2 MEQ/L (22.0-26.0); ABG PARTIAL PRESSURE CO2 51.2 mmHg (35.0-45.0); ABG PARTIAL PRESSURE O2 145.6 mmHg (75.0-100.0); ABG TOTAL CO2 29.8 MEQ/L (22.0-29.0); ABG pH (ARTERIAL) 7.359 UNITS (7.350-7.450)
[2019-01-18] MEDS: NOREPINEPHRINE BITARTRATE 8 MG in D5W 492 ML IV SCH (16:36)
--- NOTE | 2019-01-18 16:43 | ECGEPIP ---
[facility] Test Date: 2019-01-18 Pat Name: CRISTOBAL ONEAL Department: Room: [place] [address] Gender: Male Woods Boss: MIGUEL : 1965 Requested By: Juventino Fraser Order Number: [id number] Reading MD: Paul Cruz Measurements Intervals [place] Rate: 112 P: 77 NC: 135 QRS: 68 QRSD: 81 T: 79 QT: 337 QTc: 460 Interpretive Statements SINUS TACHYCARDIA ST ELEVATION, CONSIDER SEPTAL INJURY TYPE 2 BRUGADA PATTERN (NON-DIAGNOSTIC) Possible ACUTE [place] ST elevation V1 more prominent and new in V2 compared with 01/18/2019 Electronically Signed on 01-18-2019 16:42:41 EDT by Paul Cruz
[2019-01-18] MEDS ORDERED: SODIUM CHLORIDE 0.9% INJ 10 ML SYR IV PRN (17:00)
[2019-01-18] MEDS ORDERED: SLF 3 ML SYR IV PRN (17:00)
[2019-01-18 18:31] LABS: CALCIUM LEVEL 7.6 MG/DL (8.5-10.1); CREATININE FOR GFR 1.9 MG/DL (0.70-1.30); GLOMERULAR FILTRATION RATE 39.5 (>56); POTASSIUM SERUM 5.6 MEQ/L (3.5-5.1)
[2019-01-18] MEDS: HumaLOG INSULIN (NovoLOG) PER UNIT SC SCH (18:43)
[2019-01-18] MEDS ORDERED: GLUCAGON FOR INJ 1 MG VIAL (J1610) SC PRN (18:45)
[2019-01-18] MEDS ORDERED: DEXTROSE 50% 50 ML SYRINGE IV PRN (18:45)
[2019-01-18] MEDS ORDERED: GLUCOSE 4 GM CHEW TABLET PO PRN (18:45)
[2019-01-18] MEDS: SODIUM CHLORIDE 0.9% INJ 10 ML SYR IV SCH (22:34)
[2019-01-18] MEDS: SLF 3 ML SYR IV SCH (22:35)
--- NOTE | 2019-01-18 23:12 | ECHO ---
DATE OF PROCEDURE: 01/18/2019 Date of 1965 Age: 53 REFERRING PHYSICIAN: Juventino Fraser MD PATIENT LOCATION: Room 3203 REASON FOR ECHOCARDIOGRAM: Hypertension, abnormal EKG, status post cardiac arrest. 2D MEASUREMENTS IVS: 1.0 cm LV: 3.2 cm LVPW: 1.3 cm LA: 2.5 cm Aorta: 2.7 cm RV: 2.6 cm IVC: 1.5 cm DOPPLER MEASUREMENTS Peak velocity across the aortic valve: 1.3 m/s Peak velocity across the LVOT: 1.2 m/s Mitral E: 0.45, Mitral A: 0.67 with a ratio of 0.7 2D COMMENTS: 1. Normal left ventricular cut off but a moderately depressed global left ventricular systolic function with an estimated left ventricular ejection fraction (LVEF) estimated of 35 to 40%. 2. Normal left atrium. Normal right atrium and right ventricle noted in limited views. 3. Normal aortic root. 4. Trace pericardial effusion noted. No evidence of cardiac tamponade. Echo free space noted anteriorly is related to a fat pad. 5. Normal aortic valve, mitral valve, and tricuspid valve. The pulmonic valve and proximal pulmonary artery branches were not well visualized. 6. The inferior vena cava was normal in size, central venous pressure is probably normal. DOPPLER: No significant valvular abnormalities detected. Abnormal relaxation pattern was noted across the mitral valve leaflets as well as the mitral valve annulus consistent with features of grade 1 left ventricular diastolic dysfunction. IMPRESSION 1. Moderate global left ventricular systolic dysfunction. There are some features of left ventricular diastolic dysfunction manifested by abnormal relaxation. 2. Trace pericardial effusion. 3. No significant valvular abnormalities detected.
[2019-01-19] VITALS (29 sets, daily range): BP systolic 99–135; BP diastolic 55–81; O2SAT 92–97
[2019-01-19] MEDS: IPRATROPIUM 0.5MG/ALBUTEROL 2.5MG INH SOL UD 3ML (DUONEB)(J7620) NEB SCH ×7 (00:22→23:20)
[2019-01-19] MEDS: HumaLOG INSULIN (NovoLOG) PER UNIT SC SCH ×4 (01:14→17:35)
[2019-01-19] MEDS: NOREPINEPHRINE BITARTRATE 8 MG in D5W 492 ML IV SCH (03:47)
[2019-01-19] MEDS: D5W/0.45% SODIUM CHLORIDE 1,000 ML IV SCH (05:01)
--- NOTE | 2019-01-19 05:42 | ECGEPIP ---
[facility] - ED Test Date: 2019-01-18 Pat Name: CRISTOBAL ONEAL Department: Room: [place] [address] Gender: Male Freight Traffic Consultant: negrito : 1965 Requested By: ROMI Cloud Order Number: [id number] Reading MD: Gabe Shaikh Measurements Intervals [place] Rate: 121 P: 79 TN: 132 QRS: 86 QRSD: 125 T: 40 QT: 307 QTc: 436 Interpretive Statements SINUS TACHYCARDIA RIGHT BUNDLE BRANCH BLOCK, NEW COMPARED TO 12/31/18 Electronically Signed on 01-19-2019 5:41:57 EDT by Gabe Shaikh
[2019-01-19 05:52] LABS: ABG BASE EXCESS -2.6 (-2.0-2.0); ABG HCO3 28.3 MEQ/L (22.0-26.0); ABG O2 SATURATION 92.4 % (95.0-99.0); ABG PARTIAL PRESSURE O2 68.4 mmHg (75.0-100.0); ABG STANDARD HCO3 22.2 MEQ/L (22.0-26.0); ABG TOTAL CO2 30.6 MEQ/L (22.0-29.0)
[2019-01-19 05:56] LABS: ABG PARTIAL PRESSURE CO2 76.2 mmHg (35.0-45.0); ABG pH (ARTERIAL) 7.187 UNITS (7.350-7.450)
[2019-01-19] MEDS: HEPARIN SOD (PORCINE) 5000 UNITS/ML VIAL SC SCH ×3 (06:00→21:11)
[2019-01-19] MEDS: methylPREDNISolone INJ 125 MG/2 ML VIAL (J2930) IV SCH ×3 (06:01→21:11)
[2019-01-19] MEDS: SODIUM CHLORIDE 0.9% INJ 10 ML SYR IV SCH ×3 (06:01→21:11)
[2019-01-19] MEDS: SLF 3 ML SYR IV SCH ×3 (06:01→21:12)
[2019-01-19] MEDS ORDERED: NOREPINEPHRINE BITARTRATE 8 MG in D5W 492 ML IV SCH (07:00)
[2019-01-19] MEDS: NS 1,000 ML IV SCH ×4 (07:01→22:16)
[2019-01-19 07:17] LABS: HEMATOCRIT 51.6 % (42.0-52.0); HEMOGLOBIN 16.1 g/dl (13.5-17.5); MEAN CORPUSCULAR HEMOGLOBIN 29.2 pg (27.0-33.0); MEAN CORPUSCULAR HGB CONC 31.2 g/dl (32.0-36.5); MEAN CORPUSCULAR VOLUME 93.5 fl (80.0-96.0); PLATELET COUNT, AUTOMATED 226 10^3/uL (150-450); RED BLOOD COUNT 5.52 10^6/uL (4.30-6.10); WHITE BLOOD COUNT 15.3 10^3/uL (4.0-10.0)
[2019-01-19 07:55] LABS: ALBUMIN 2.2 GM/DL (3.2-5.2); BILIRUBIN,TOTAL 0.8 MG/DL (0.2-1.0); CREATININE FOR GFR 2.26 MG/DL (0.70-1.30); GLOMERULAR FILTRATION RATE 32.4 (>56); PHOSPHORUS LEVEL 2.3 MG/DL (2.5-4.9); POTASSIUM SERUM 5.1 MEQ/L (3.5-5.1); TOTAL PROTEIN 6.2 GM/DL (6.4-8.2)
[2019-01-19 08:04] LABS: ATYPICAL LYMPH 1 % (0-5); LYMPHOCYTES 5 % (16-44); MONOCYTES 15 % (0-5); NEUTROPHILS 76 % (28-66); PLATELET ESTIMATE NORMAL (NORMAL)
[2019-01-19] MEDS: CHLORHEXIDINE GLUCONATE 0.12 % 15ML UDC (PERIDEX ORAL RINSE) MT SCH ×2 (09:17→21:12)
[2019-01-19] MEDS: PANTOPRAZOLE 40MG INJ (PROTONIX) (C9113) IV SCH (09:18)
[2019-01-19 09:22] LABS: ABG BASE EXCESS -2.7 (-2.0-2.0); ABG HCO3 25.1 MEQ/L (22.0-26.0); ABG O2 SATURATION 96.2 % (95.0-99.0); ABG PARTIAL PRESSURE CO2 54.3 mmHg (35.0-45.0); ABG PARTIAL PRESSURE O2 80.6 mmHg (75.0-100.0); ABG STANDARD HCO3 22.2 MEQ/L (22.0-26.0); ABG TOTAL CO2 26.7 MEQ/L (22.0-29.0); ABG pH (ARTERIAL) 7.282 UNITS (7.350-7.450)
--- NOTE | 2019-01-19 09:49 | REP ---
REASON: Respiratory failure. COMPARISON: Multiple, the latest 01/18/2019. The endotracheal tube is unchanged remaining in satisfactory position. There is no significant change in appearance of the nasogastric tube. The technique utilized in obtaining the radiograph has magnified the cardiac silhouette and accentuated the interstitial markings. Cardiomediastinal silhouette is stable. Chronic left basilar opacities, status quo. Central venous catheter tip is unchanged remaining in the superior vena cava. There is no change in the osseous structures. IMPRESSION: No significant change when compared to the prior exam other than technique. There is no evidence of acute cardiopulmonary disease. Electronically Signed by Sean Pollack DO 01/19/2019 09:53 A
--- NOTE | 2019-01-19 10:09 | REP ---
REASON FOR EXAM: History of anoxic encephalopathy. COMPARISON EXAMINATION: 01/18/2019 Preliminary report was given by [facility] at the time the examination was performed. There is diffuse loss of ro-white matter differentiation without discernible brain sulci. The ventricles have gotten even smaller. There is no evidence of an acute intracranial hemorrhage. There is no shift in the midline structures. There is no change in the osseous structures. IMPRESSION: Diffuse cerebral edema, which appears to have increased from the prior exam. Electronically Signed by Sean Pollack DO 01/19/2019 11:23 A
[2019-01-19 11:47] LABS: ABG PARTIAL PRESSURE CO2 48.8 mmHg (35.0-45.0); ABG PARTIAL PRESSURE O2 72.8 mmHg (75.0-100.0); ABG STANDARD HCO3 21.2 MEQ/L (22.0-26.0); ABG TOTAL CO2 24.5 MEQ/L (22.0-29.0); ABG pH (ARTERIAL) 7.292 UNITS (7.350-7.450)
[2019-01-19] MEDS ORDERED: FUROSEMIDE 100 MG/10 ML VIAL (J1940) IV ONE (13:00)
--- NOTE | 2019-01-19 13:56 | CCN ---
DATE: 01/19/2019 CRITICAL CARE NOTE START TIME: 0756 hours STOP TIME: 0834 hours I again attended Altaf Valdivia here in the intensive care unit. The patient has been examined, the chart was reviewed. Maximum temperature (T max) overnight 99.8, blood pressure 90s to the 130s and he remains on 5 mcg of Levophed. Heart rate is generally in the 120s to 130s with a sinus mechanism. Respiratory rate generally in the mid 20s. He does over breathe the ventilator. Central venous pressure (CVP) to 13-17. Intake and output: 4145 mL in with 2055 mL out. The most recent laboratories show a white blood cell count of 15.3, hemoglobin 16.1, and platelet count of 226,000, 76% segmented neutrophils, 3% bands. Sodium 130, potassium of 5.1, chloride 96, CO2 of 28, BUN 50, creatinine up to 2.26, glucose 349, and he is requiring coverage. Phosphorus mildly low at 2.3. AST 91, ALT 75,alkaline phosphatase 85, LDH 685, troponin yesterday was 0.4. Echocardiogram is pending. Blood cultures are negative. Chest x-ray shows lines and tubes in good position. No obvious infiltrates. On exam, he remains unresponsive. Although he does over breathe the ventilator, there is no cough, no gag and no response to deep stimuli this morning. Pupils are large and nonreactive. Membranes are moist. Trachea is in the midline. Chest clear anteriorly. There are some faint dependent crackles. Expansion is symmetric. There remains some light expiratory wheezing throughout. Cardiac exam is tachycardic but regular. Peripheral pulses palpable. Trace edema. Abdomen: Morbidly obese, soft. There may be some hypoactive bowel sounds but no convincing organomegaly or masses. Extremities: Without cyanosis or clubbing. Neurologic: As outlined above. CT of the head done this morning shows worsening of his loss of effacement consistent with his anoxic injury. The most pressing problems requiring my presence at the bedside: 1. 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 2. Respiratory failure secondary to the above. 3. Essentially end-stage obstructive lung disease. 4. Longstanding continued tobacco abuse until the time of admission. 5. Hyperglycemia. 6. Hyponatremia. At this point, it appears as though he may have suffered an unrecoverable and devastating neurologic injury. I will have neurology become involved in his care today. At this point, he does over breathe the ventilator, so he does not meet brain criteria. He has a healthcare proxy, his sister, who has been unable to come in. Nursing staff has been able to contact her and would have more information immediately available regarding the above. I will speak with her by phone if she is not able to come in. He remains on low dose Levophed. His fluid status appears reasonable. Most recent blood gas done on packed red blood cells (PRBC) rate of 16, tidal volume 400, PEEP 5, FiO2 of 50% is a pH of 7.187, pCO2 of 76.2, and a pO2 of 68.4. Ventilator adjustments have been made by myself and repeat blood gas is pending. We will continue on IV steroids and nebulized bronchodilators. I see no active infection. For now, until we are able to adequately speak with his healthcare proxy, he remains a FULL CODE, but he should he suffer another cardiac arrest, then he will be unrecoverable. He had borderline troponins. We await his echocardiogram. His mild electrolytes abnormalities are being addressed via changes in his IV fluids. At this point, I suspect his injury is unrecoverable regarding meaningful functional status. Will proceed as outlined above. I believe it most appropriate that he be a do not resuscitate (DNR) status. If we are not able to adequately have a conversation with his healthcare proxy, this may need to be done with two-physician input. We will proceed as outlined above. At this point, will continue full support. I left the bedside at 0834 hours. 38 minutes of critical care time at the bedside not including procedures.
[2019-01-19] MEDS ORDERED: ACETAMINOPHEN 500 MG TAB PO PRN (17:00)
[2019-01-19 20:43] LABS: CALCIUM LEVEL 6.4 MG/DL (8.5-10.1); GLOMERULAR FILTRATION RATE 23.3 (>56); POTASSIUM SERUM 4.8 MEQ/L (3.5-5.1)
[2019-01-19] MEDS ORDERED: NS 500 ML IV ONE (21:30)
[2019-01-20] VITALS (17 sets, daily range): BP systolic 95–109; BP diastolic 51–58; O2SAT 94–97
[2019-01-20] MEDS: HumaLOG INSULIN (NovoLOG) PER UNIT SC SCH ×4 (00:22→18:18)
[2019-01-20] MEDS: IPRATROPIUM 0.5MG/ALBUTEROL 2.5MG INH SOL UD 3ML (DUONEB)(J7620) NEB SCH ×5 (03:56→20:20)
[2019-01-20] MEDS: NS 1,000 ML IV SCH ×3 (05:22→22:17)
[2019-01-20] MEDS: SODIUM CHLORIDE 0.9% INJ 10 ML SYR IV SCH ×3 (05:59→21:02)
[2019-01-20] MEDS: methylPREDNISolone INJ 125 MG/2 ML VIAL (J2930) IV SCH ×3 (05:59→21:01)
[2019-01-20] MEDS: HEPARIN SOD (PORCINE) 5000 UNITS/ML VIAL SC SCH ×3 (06:00→21:01)
[2019-01-20] MEDS: SLF 3 ML SYR IV SCH ×3 (06:00→21:02)
[2019-01-20 06:09] LABS: ABG BASE EXCESS -6.8 (-2.0-2.0); ABG HCO3 22.5 MEQ/L (22.0-26.0); ABG O2 SATURATION 87.2 % (95.0-99.0); ABG PARTIAL PRESSURE O2 56.5 mmHg (75.0-100.0); ABG STANDARD HCO3 18.8 MEQ/L (22.0-26.0); ABG TOTAL CO2 24.4 MEQ/L (22.0-29.0)
[2019-01-20 06:11] LABS: ABG pH (ARTERIAL) 7.184 UNITS (7.350-7.450)
[2019-01-20 06:12] LABS: ABG PARTIAL PRESSURE CO2 61.1 mmHg (35.0-45.0)
[2019-01-20 06:32] LABS: HEMATOCRIT 47.6 % (42.0-52.0); HEMOGLOBIN 14.6 g/dl (13.5-17.5); MEAN CORPUSCULAR HEMOGLOBIN 29.3 pg (27.0-33.0); MEAN CORPUSCULAR HGB CONC 30.7 g/dl (32.0-36.5); MEAN CORPUSCULAR VOLUME 95.6 fl (80.0-96.0); PLATELET COUNT, AUTOMATED 185 10^3/uL (150-450); RED BLOOD COUNT 4.98 10^6/uL (4.30-6.10)
[2019-01-20 07:09] LABS: LYMPHOCYTES 9 % (16-44); METAMYELOCYTES 1 % (0-0); MONOCYTES 11 % (0-5); NEUTROPHILS 77 % (28-66); PLATELET ESTIMATE NORMAL (NORMAL)
[2019-01-20 07:10] LABS: TOXIC VACUOLATION 1+
[2019-01-20 07:20] LABS: ALBUMIN 1.9 GM/DL (3.2-5.2); CALCIUM LEVEL 6.2 MG/DL (8.5-10.1); CREATININE FOR GFR 3.67 MG/DL (0.70-1.30); GLOMERULAR FILTRATION RATE 18.5 (>56); POTASSIUM SERUM 4.8 MEQ/L (3.5-5.1); TOTAL PROTEIN 5.5 GM/DL (6.4-8.2)
[2019-01-20] MEDS ORDERED: ACETAMINOPHEN 325 MG/10.15 ML UDC GT PRN (07:30)
[2019-01-20] MEDS ORDERED: FUROSEMIDE 100 MG/10 ML VIAL (J1940) IV ONE (09:30)
--- NOTE | 2019-01-20 09:30 | REP ---
REASON: Respiratory failure. COMPARISON: Multiple, latest yesterday. The nasogastric tube has been advanced. The tip is beyond the scope of the radiographic in the left upper quadrant of the abdomen. There is no change in the endotracheal tube. There is no change in the central venous catheter tip. It remains in the superior vena cava. There is slight left CP angle blunting, probably unchanged, possibly slightly increased. The interstitial markings in the right lower lobe appear to be slightly increased. No new definite patchy opacities have developed. There is no change in the osseous structures. The heart is not enlarged. IMPRESSION: 1. Tubes and lines as described above. 2. Possible slight increase left basilar opacity suggesting a slight left pleural effusion. Certainly, basilar pneumonia/subsegmental atelectatic change cannot be ruled out. 3. Slightly increased interstitial markings in the right lung base. Possible asymmetric pulmonary edema versus subsegmental atelectatic change or developing pneumonia. This should be correlated clinically with appropriate followup. Electronically Signed by Sean Pollack DO 01/20/2019 09:45 A
[2019-01-20] MEDS: PANTOPRAZOLE 40MG INJ (PROTONIX) (C9113) IV SCH (09:41)
[2019-01-20] MEDS: CHLORHEXIDINE GLUCONATE 0.12 % 15ML UDC (PERIDEX ORAL RINSE) MT SCH ×2 (09:42→21:01)
--- NOTE | 2019-01-20 20:16 | CCN ---
DATE: 01/20/2019 The patient was examined, the chart reviewed. I have spoke at length as well with his sister Concepcion Mohamud, , regarding his status. She is the stated healthcare proxy. She tells me he has other siblings, but she is the only one that keeps in touch with him and is willing to make decisions for him in view of healthcare proxy status. She has been updated and that discussion will be detailed further below. T-max overnight 103.8, blood pressure generally 100 to 110, heart rate 120 to 130s, respiratory rate 24 via the ventilator. No significant spontaneous respiratory efforts this morning. Input and output midnight to midnight 4423 mL in with 2307 mL out. White blood cell count 16,000, hemoglobin 14.6, platelet count 185,000, 77% segments, 2% bands. Sodium 135, potassium of 4.8, chloride 101, CO2 23, BUN 72, creatinine 3.67. Central venous pressure (CVP) 12 to 15. Albumin 1.9. Blood gas done on a PRVC rate of 24, total tidal 500 and PEEP of 5. FiO2 30%, has a pH of 7.184, pCO2 of 61.1 and pO2 of 56.5. Chest x-ray shows no new findings. No obvious infiltrate. Lines and tubes in good position. Echocardiogram shows globally depressed LV systolic function with an ejection fraction of about 35%. PHYSICAL EXAMINATION: He is unresponsive. Pupils are 5 to 6 mm and nonreactive. No corneal, no cough, no gag. Unresponsive to pain today. He does not over breath the ventilator despite his profound acidosis. Membranes are moist. Trachea is in the midline. Chest shows mid to late expiratory wheeze. Expansion is symmetric. There are some faint basilar crackles. Cardiac exam: Tachycardiac, but regular. Peripheral pulses diminished. Trace edema. Abdomen distended. Minimal bowel sounds. No obvious organomegaly or masses. Extremities: No cyanosis or clubbing. Neurologically, as outlined above. The most pressing problems requiring my immediate presence at the bedside: 1. Combined metabolic and respiratory acidosis, progressive. 2. Respiratory failure, both hypoxemic and hypercapnic requiring mechanical ventilatory support. 3. Profound anoxic brain injury, status post asystolic cardiac arrest. 4. Congestive heart failure with globally diminished LV systolic function 5. Renal failure, progressive. 6. Advanced obstructive lung disease. 7. Longstanding tobacco abuse. 8. DO NOT RESUSCITATE status. I had a very lengthy discussion on the phone with his sister Concepcion and updated her. She says that in view of his neurologic status and the zero chance of meaningful recovery that she would prefer that care be withdrawn and we pursue comfort measure care only. She would like a chance to at least touch base with some of the other siblings and will notify us later today. If we do not hear from her, I will contact her again by phone. In the interim however, per her request, he has been a DO NOT RESUSCITATE and the MOLST form has been signed. At this point, in view of his overall status and his LV systolic function, I will decrease his IV fluids and try some diuretics. Ventilator adjustments were made yesterday, but he has progressive decline. At this point, he will clearly not survive this hospitalization even in the face of maximal support. We will continue our current level of care at this point. We await a call from his sister, as she seems to favor withdrawal support. I left the bedside at 0918 hours. A total of 46 minutes critical care time at the bedside, not including procedures.
[2019-01-21] VITALS (8 sets, daily range): BP systolic 108–118; BP diastolic 52–59; O2SAT 91–92
[2019-01-21] MEDS: HumaLOG INSULIN (NovoLOG) PER UNIT SC SCH ×2 (00:06→05:04)
[2019-01-21] MEDS: IPRATROPIUM 0.5MG/ALBUTEROL 2.5MG INH SOL UD 3ML (DUONEB)(J7620) NEB SCH ×3 (00:11→07:22)
[2019-01-21] MEDS: HEPARIN SOD (PORCINE) 5000 UNITS/ML VIAL SC SCH (05:02)
[2019-01-21] MEDS: methylPREDNISolone INJ 125 MG/2 ML VIAL (J2930) IV SCH (05:02)
[2019-01-21] MEDS: SLF 3 ML SYR IV SCH (05:04)
[2019-01-21] MEDS: SODIUM CHLORIDE 0.9% INJ 10 ML SYR IV SCH (05:04)
[2019-01-21 05:19] LABS: HEMATOCRIT 44.6 % (42.0-52.0); HEMOGLOBIN 13.7 g/dl (13.5-17.5); MEAN CORPUSCULAR HGB CONC 30.7 g/dl (32.0-36.5); MEAN CORPUSCULAR VOLUME 94.3 fl (80.0-96.0); PLATELET COUNT, AUTOMATED 175 10^3/uL (150-450); RED BLOOD COUNT 4.73 10^6/uL (4.30-6.10); WHITE BLOOD COUNT 15.7 10^3/uL (4.0-10.0)
[2019-01-21 05:27] LABS: LYMPHOCYTES 4 % (16-44); METAMYELOCYTES 2 % (0-0); MONOCYTES 13 % (0-5); NEUTROPHILS 78 % (28-66)
[2019-01-21 05:29] LABS: ANISOCYTOSIS 1+; PLATELET ESTIMATE NORMAL (NORMAL)
[2019-01-21 05:45] LABS: ABG BASE EXCESS -7.8 (-2.0-2.0); ABG HCO3 20.2 MEQ/L (22.0-26.0); ABG O2 SATURATION 92.8 % (95.0-99.0); ABG PARTIAL PRESSURE CO2 50.6 mmHg (35.0-45.0); ABG PARTIAL PRESSURE O2 68.6 mmHg (75.0-100.0); ABG STANDARD HCO3 18.2 MEQ/L (22.0-26.0); ABG TOTAL CO2 21.8 MEQ/L (22.0-29.0)
[2019-01-21 05:47] LABS: ABG pH (ARTERIAL) 7.219 UNITS (7.350-7.450)
[2019-01-21 06:02] LABS: ALBUMIN 1.9 GM/DL (3.2-5.2); BILIRUBIN,TOTAL 0.6 MG/DL (0.2-1.0); CALCIUM LEVEL 6.4 MG/DL (8.5-10.1); CREATININE FOR GFR 3.98 MG/DL (0.70-1.30); GLOMERULAR FILTRATION RATE 16.8 (>56); PHOSPHORUS LEVEL 3.3 MG/DL (2.5-4.9); TOTAL PROTEIN 5.6 GM/DL (6.4-8.2)
--- NOTE | 2019-01-21 07:30 | REP ---
Portable chest, 06:53 a.m., single AP view with the patient semi upright: Comparison is 01/20/2019. There are no focal infiltrates. Mild interstitial coarsening inferiorly in the right lung is unchanged. Cardiac size is normal. Marisela and mediastinum are unremarkable. The right subclavian central venous catheter remains in satisfactory position with the tip at the confluence of the superior vena cava and right atrium. The endotracheal tube remains in satisfactory location with the tip just above the level of the aortic arch. The nasogastric tube remains in satisfactory position with the tip in the abdominal left upper quadrant. Impression: No significant interval change. Electronically Signed by Preet Don MD 01/21/2019 07:21 A
[2019-01-21] MEDS ORDERED: FUROSEMIDE 100 MG/10 ML VIAL (J1940) As Ordered ONE (08:11)
[2019-01-21] MEDS: PANTOPRAZOLE 40MG INJ (PROTONIX) (C9113) IV SCH (08:20)
[2019-01-21] MEDS: CHLORHEXIDINE GLUCONATE 0.12 % 15ML UDC (PERIDEX ORAL RINSE) MT SCH (08:20)
[2019-01-21] MEDS ORDERED: FUROSEMIDE 100 MG/10 ML VIAL (J1940) IV ONE (09:00)
--- NOTE | 2019-01-21 10:05 | CCN ---
DATE OF VISIT: 01/21/2019 START TIME: 0845 hours STOP TIME: 0924 hours I again attended Altaf Valdivia here in the intensive care unit. The patient has been examined and chart is reviewed. I have spoken at length with several family members at the bedside. I had a very lengthy conversation yesterday by phone with his oldest sister Humaira, area code [phone]. I am told by the rest of the family that Concepcion is not the decision-maker. That being the case since there are no parents and no children that the oldest sibling is therefore the legal next decision-maker. They are clear in their agreement that he would not have wished prolonged support especially in the face of an unrecoverable neurologic injury. This will be discussed further below. He has developed fevers overnight with a maximum temperature (Tmax) of 103.1, blood pressure 108-118 systolic, heart rate 130s-140s. He does not over breathe the ventilator. Input and output midnight to midnight 3055 mL in with 1210 mL out. White blood cell count 15.7, hemoglobin 13.7, platelet count 175,000, 78% segments, 3% bands. Sodium 139, potassium of 5.0, chloride 107, CO2 23, BUN 89, creatinine up to 3.98, glucose 330. LDH 1398, CK 384, albumin 1.9. Blood gas done on a PRVC rate of 24, tidal volume of 500, PEEP of 5, FiO2 of 60% has a pH of 7.219, pCO2 of 50.6, pO2 of 68.6, saturation 92.8%. He is currently requiring 100% FiO2. Chest x-ray shows lines and tubes in good position. No obvious infiltrate. No new findings. On exam, he remains unresponsive to even noxious stimuli. Pupils are fixed and dilated. There are no corneal, no cough and no gag. Chest shows diminished but symmetric expansion. There is faints end expiratory wheeze. No focal adventitious breath sounds. Cardiac exam is tachycardiac. Peripheral pulses diminished but palpable. Diffuse mild edema is unchanged. Abdomen obese, soft. No obvious organomegaly or masses, or complete diminished bowel sounds. Extremities show no cyanosis or clubbing. No mottling. Neurologically, he is unresponsive and does not over breathe the ventilator this morning. The most pressing problems requiring my presence at the bedside: 1. Anoxic encephalopathy. 2. Asystolic cardiac arrest. 3. Advanced essentially end-stage obstructive lung disease. 4. Multiorgan dysfunction on the basis of a combination of the above. As outlined above, I had a very lengthy discussion with the rest of the family at the bedside, which includes at least two other sisters, cousin and their spouses. They have spoken with Humaira this morning they tell me. Humaira does not wish to be here. I am told several other family members came and visited yesterday, including brothers. They are all in agreement with the DO NOT RESUSCITATE status, which was put in place yesterday. After a long discussion again explaining his devastating neurologic injury they clearly note that he would not wish to continue. At this point, either we wait and do formal brain criteria or extubate him to comfort measures care. They do not wish to prolong this any further and I would agree with them completely with the appropriateness of that. In view of this, after he has been seen by pastoral services and when the family is ready, he will be extubated to comfort measures care. I spoke with them regarding autopsy. Medically I do not need one, and therefore, they do not wish to have one done. At this point, clearly he will not survive this hospitalization. I left the bedside at 0924 hours. 39 minutes of critical care time at the bedside, not including procedures. JAIME
--- NOTE | 2019-01-21 11:00 | CR ---
DATE OF CONSULTATION: 01/19/2019 REASON FOR CONSULTATION: Suspected severe hypoxic brain injury. REFERRING PROVIDER: Dr. Juventino Fraser HISTORY OF PRESENT ILLNESS: The patient is a 53-year-old male with past medical history significant for tobacco abuse, chronic hypoxemic hypercapnic respiratory failure resulting in being admitted to the hospital on 10/01/2018. The patient has obstructive lung disease. He was found in asystole, brought to the hospital, ACLS protocol was followed. The patient was resuscitated. CT scan shows diffuse anoxic brain injury with significant progression of edema. The fourth ventricle is not well seen on the second image. Ventricles all appear to be smaller. The patient at the present time has only one remaining brain stem function remaining which is breathing over the ventilator. Other than that all brain stem function are lost. The patient does not have any spontaneous movement. He is intubated off of all sedation. He is tachycardic and tachypneic. ALLERGIES: AMOXICILLIN. MEDICATIONS AT HOME: - Singular - Spiriva PAST MEDICAL HISTORY: History of hypercapnic respiratory failure in September 2018, advanced obstructive lung disease, hypercholesterolemia, chronic hypoxemia, chronic tobacco abuse. SOCIAL HISTORY: The patient lives alone. He is a tobacco user. FAMILY HISTORY: Noncontributory. REVIEW OF SYSTEMS: Unobtainable in the patient's current cognitive status. PHYSICAL EXAMINATION: Blood pressure 100/58, pulse rate is 126, temperature is 98.8 degrees Fahrenheit, respiratory rate is 24, oxygenation 97%. LABORATORY DATA: Lactic acid 11 down to 2.5, CPK 685, troponin 0.44 elevated, TSH elevated at 5.14, potassium elevated at 5.2, AST elevated at 86, ALT elevated at 85. The patient is unable to speak, unable to spontaneously move. Motor responses are absent to noxious stimuli in all four extremities. Babinski signs are mute. Pupils are fixed, nonreactive. Doll's eyes are negative. Responses are absent. Gag response is negative. Deep cough stimulated by suction negative. The patient positively breathes over the vent. ASSESSMENT: 1. 53-year-old male with longstanding lung disease presenting with likely cardiac event leading to asystole and anoxic brain. The patient has diffuse catastrophic brain injury at this time with minimal remaining brain stem function of breathing over the vent. Making full recovery at this point is not likely given that the patient is completely off sedation intubated without any responses. Continue supportive care. Comfort care measures may be appropriate per family wishes. EEG can be obtained on Monday if needed.
--- NOTE | 2019-01-21 11:45 | DSES ---
DATE OF ADMISSION: 01/18/2019 DATE OF DISCHARGE: DISCHARGE DIAGNOSIS: 1. 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 SECONDARY DIAGNOSES: 1. Asystolic cardiac arrest. 2. Essentially end stage obstructive lung disease. 3. Respiratory failure requiring mechanical ventilatory support. 4. Renal insufficiency. 5. Decreased cardiac systolic function. 6. Gastroesophageal reflux disease (GERD). HISTORY: Mr. Valdivia is a 53-year-old gentleman found down at home. He was in asystole. He was able to have return of a perfusable rhythm. On admission, he had pupils that were nonreactive, no corneals, no cough, no gag. He was only minimally responsive to even the most noxious stimuli. At that point in time, he did at least over breathe the ventilator somewhat. CT scan done on admission showed changes already of significant anoxic injury with loss of ro/white matter distinction and diffuse edema. Examination at the time of admission was as above. Showed no cough, no gag, no corneals. He had diffuse expiratory wheezing. Cardiac examination was intermittently tachycardic. Abdomen obese without obvious organomegaly or masses. Extremities without cyanosis, clubbing. HOSPITAL COURSE: He was admitted to the intensive care unit (ICU). Ventilatory adjustments were made. We were initially unable to reach family. When we did, multiple discussions were had. He was seen by neurology. Their examination was consistent with his diffuse injury and clinical profound brain injury with impending formal brain . He was maintained on ulcer and deep vein thrombosis (DVT) prophylaxis. He had a central line placed at one point. Central venous pressures were more than adequate. He continued to have overall declining function of not only his renal function but his oxygenation status. He then developed central fevers. More family members were able to be reached. Consensus was reached among all of them that he should be DO NOT RESUSCITATE. They wished comfort measures only given his devastating neurologic injury and no chance for meaningful recovery. They stated clearly that this would have been his wishes. He was therefore extubated to comfort measures care at 10:00 o'clock on 01/21/2019. He at 10:19 on the same date. No autopsy is required. Family has not decided on arrangements at this time. For pertinent laboratories, please refer to the hospital record. JAIME
== END 2019-01-21 11:15 | disposition expired | DRG 133 ==
LOC: M ED 03:30 → M ED INP 05:26 → M ICU 06:39
PROVIDERS: ADMIT Internal Medicine Pulmonary Disease; ATTEND Internal Medicine Pulmonary Disease
PROC: 5A1945Z Respiratory Ventilation, 24-96 Consecutive Hours (ICD-10-PCS; principal; 2019-01-18)
PROC: 02HV33Z Insertion of Infusion Device into Superior Vena Cava, Percutaneous Approach (ICD-10-PCS; 2019-01-18)
DX: J96.21 Acute and chronic respiratory failure with hypoxia (principal); G93.6 Cerebral edema; I46.9 Cardiac arrest, cause unspecified; G93.1 Anoxic brain damage, not elsewhere classified; E87.2 Acidosis; I50.22 Chronic systolic (congestive) heart failure; J44.9 Chronic obstructive pulmonary disease, unspecified; E87.1 Hypo-osmolality and hyponatremia; K21.9 Gastro-esophageal reflux disease without esophagitis; Z66 Do not resuscitate; Z51.5 Encounter for palliative care; F17.200 Nicotine dependence, unspecified, uncomplicated; Z88.0 Allergy status to penicillin; E78.00 Pure hypercholesterolemia, unspecified; J96.22 Acute and chronic respiratory failure with hypercapnia